=== PATIENT | male | born 1945 | race Caucasian/White ===

== ENCOUNTER 2020-10-29 07:57 | Outpatient (REF) | payer MEDICARE, SELFPAY ==
[2020-10-29 11:26] LABS: MANUAL DIFF FLAG NO
[2020-10-29 11:48] LABS: Basophils Percent Auto 0.3 % (0-2); Eosinophils Absolute Auto 0.1 X10*3/uL (0.0-0.4); Hematocrit 46.1 % (42-52); Hemoglobin 15.7 g/dl (14.0-18.0); Imm Gran Abs Auto 0.03 X10*3/uL (0.00-0.03); Imm Gran Pct Auto 0.4 % (0.0-0.4); Lymphocytes Absolute Auto 1.3 X10*3/uL (1.2-4.9); Lymphocytes Percent Auto 18.5 % (20-40); Mean Corpuscular HGB Conc 34.1 g/dl (31.0-36.0); Mean Corpuscular Hemoglobin 34.1 pg (27.0-33.0); Mean Platelet Volume 10.6 fL (9.4-12.4); Monocytes Absolute Auto 0.7 X10*3/uL (0.1-1.2); Monocytes Percent Auto 9.2 % (2-11); Neutrophils Absolute Auto 4.9 X10*3/uL (2.0-8.3); Neutrophils Percent Auto 69.6 % (45-73); Platelet Count 219 X10*3/uL (160-400); Red Blood Count 4.61 X10*6/uL (4.60-5.80); Red Cell Distribution Width 12.6 % (11.0-16.0); White Blood Count 7.1 X10*3/uL (4.8-10.8)
[2020-10-29 11:49] LABS: B Type Natriuretic Peptide 77 pg/mL (<100)
[2020-10-29 12:10] LABS: Free T4 (Free Thyroxine) 1.09 ng/dL (0.71-1.85); Thyroid Stimulating Hormone 1.34 uIU/mL (0.32-4.0)
[2020-10-29 12:11] LABS: Alanine Aminotransferase 19 U/L (0-40); Albumin Level 4.3 g/dL (3.5-5.0); Alkaline Phosphatase 69 U/L (39-117); Anion Gap 15 (12-20); Aspartate Amino Transferase 19 U/L (5-37); Blood Urea Nitrogen 22 mg/dL (9-16); Calcium 9.6 mg/dL (8.4-10.2); Carbon Dioxide 23 mmol/L (22-29); Chloride 106 mmol/L (96-108); Cholesterol 192 mg/dL; Estimated Glomerular Filt Rate > 60; Glucose Random 94 mg/dL (60-115); HDL Cholesterol 59 mg/dL; LDL Cholesterol Calculated 115 mg/dl; Potassium 4.2 mmol/L (3.3-5.1); Sodium 140 mmol/L (135-145); Total Protein 6.9 g/dL (6.5-8.0); Triglycerides 92 mg/dL
[2020-10-29 12:26] LABS: Folate 18.9 ng/mL (> or = 4.0); Vitamin B12 430 pg/mL (200-900)
== END 2020-10-29 07:58 | disposition home or self-care (01) ==
LOC: HO.HMGCLDS 07:57
PROVIDERS: PCP Internal Medicine; Visit Provider Internal Medicine
DX: E78.00 Pure hypercholesterolemia, unspecified (principal); I48.0 Paroxysmal atrial fibrillation; K21.9 Gastro-esophageal reflux disease without esophagitis
CPT/HCPCS: 36415; 80053; 80061; 82607; 82746; 83880; 84439; 84443; 85025

== ENCOUNTER 2021-04-17 07:59 | Outpatient (REF) | payer MEDICARE, SELFPAY ==
[2021-04-17 11:08] LABS: MANUAL DIFF FLAG NO
[2021-04-17 11:25] LABS: Basophils Percent Auto 0.5 % (0-2); Eosinophils Absolute Auto 0.2 X10*3/uL (0.0-0.4); Eosinophils Percent Auto 3.4 % (0-4); Hematocrit 43.5 % (42.0-52.0); Hemoglobin 14.5 g/dl (14.0-18.0); Imm Gran Abs Auto 0.02 X10*3/uL (0.00-0.03); Imm Gran Pct Auto 0.4 % (0.0-0.4); Lymphocytes Absolute Auto 1.1 X10*3/uL (1.2-4.9); Lymphocytes Percent Auto 20.2 % (20-40); Mean Corpuscular HGB Conc 33.3 g/dl (31.0-36.0); Mean Corpuscular Hemoglobin 33.3 pg (27.0-33.0); Mean Corpuscular Volume 99.8 fL (80.0-98.0); Mean Platelet Volume 10.1 fL (9.4-12.4); Monocytes Absolute Auto 0.7 X10*3/uL (0.1-1.2); Monocytes Percent Auto 12.6 % (2-11); Neutrophils Absolute Auto 3.6 x10*3/uL (2.0-8.3); Neutrophils Percent Auto 62.9 % (45-73); Platelet Count 206 X10*3/uL (160-400); Red Blood Count 4.36 X10*6/uL (4.60-5.80); Red Cell Distribution Width 13.4 % (11.0-16.0); White Blood Count 5.6 X10*3/uL (4.8-10.8)
[2021-04-17 11:41] LABS: Alanine Aminotransferase 20 U/L (0-40); Alkaline Phosphatase 64 U/L (39-117); Anion Gap 10 (12-20); Aspartate Amino Transferase 19 U/L (5-37); Bilirubin Total 0.8 mg/dL (0.0-1.0); Blood Urea Nitrogen 22 mg/dL (9-16); Carbon Dioxide 26 mmol/L (22-29); Chloride 108 mmol/L (96-108); Cholesterol 157 mg/dL; Estimated Glomerular Filt Rate > 60; Glucose Random 91 mg/dL (60-115); HDL Cholesterol 59 mg/dL; LDL Cholesterol Calculated 87 mg/dl; Potassium 4.1 mmol/L (3.3-5.1); Sodium 140 mmol/L (135-145); Total Protein 6.4 g/dL (6.5-8.0); Triglycerides 55 mg/dL
[2021-04-17 12:03] LABS: Thyroid Stimulating Hormone 1.05 uIU/mL (0.32-4.0)
[2021-04-17 12:40] LABS: Folate 19.4 ng/mL (> or = 4.0)
[2021-04-17 14:08] LABS: Vitamin B12 509 pg/mL (200-900)
== END 2021-04-17 08:00 | disposition home or self-care (01) ==
LOC: HO.HMGCLDS 07:59
PROVIDERS: PCP Internal Medicine; Visit Provider Internal Medicine
DX: E78.00 Pure hypercholesterolemia, unspecified (principal)
CPT/HCPCS: 36415; 80053; 80061; 82607; 82746; 84439; 84443; 85025

== ENCOUNTER 2021-06-13 09:51 | Outpatient (REF) | payer MEDICARE, SELFPAY ==
[2021-06-13 13:50] LABS: Appearance Urine CLEAR; Color Urine YELLOW; Glucose Urine UA NEG (NEG); Leukocyte Esterase Urine NEG (NEG); Nitrite Urine NEG (NEG); PH 5.5 (5.0-8.0); Specific Gravity - Urine <= 1.005 (1.005-1.025); Urine Blood NEG (NEG); Urine Ketones NEG (NEG); Urine Protein NEG (NEG-TRACE)
== END 2021-06-13 09:52 | disposition home or self-care (01) ==
LOC: HO.HMGCLDS 09:51
PROVIDERS: PCP Internal Medicine; Visit Provider Urology
DX: N39.0 Urinary tract infection, site not specified (principal)
CPT/HCPCS: 81003; 87086

== ENCOUNTER 2022-05-04 07:10 | Outpatient (REF) | payer MEDICARE, SELFPAY ==
[2022-05-04 09:03] LABS: MANUAL DIFF FLAG NO
[2022-05-04 09:09] LABS: Basophils Percent Auto 0.5 % (0-2); Eosinophils Absolute Auto 0.2 X10*3/uL (0.0-0.4); Eosinophils Percent Auto 4.3 % (0-4); Hematocrit 42.6 % (42.0-52.0); Hemoglobin 14.6 g/dl (14.0-18.0); Imm Gran Abs Auto 0.02 X10*3/uL (0.00-0.03); Imm Gran Pct Auto 0.4 % (0.0-0.4); Lymphocytes Absolute Auto 1.5 X10*3/uL (1.2-4.9); Lymphocytes Percent Auto 27.3 % (20-40); Mean Corpuscular HGB Conc 34.3 g/dl (31.0-36.0); Mean Corpuscular Hemoglobin 33.3 pg (27.0-33.0); Monocytes Absolute Auto 0.7 X10*3/uL (0.1-1.2); Monocytes Percent Auto 11.8 % (2-11); Neutrophils Absolute Auto 3.1 x10*3/uL (2.0-8.3); Neutrophils Percent Auto 55.7 % (45-73); Platelet Count 205 X10*3/uL (160-400); Red Blood Count 4.39 X10*6/uL (4.60-5.80); Red Cell Distribution Width 12.5 % (11.0-16.0); White Blood Count 5.6 X10*3/uL (4.8-10.8)
[2022-05-04 09:51] LABS: Alanine Aminotransferase 17 U/L (0-40); Alkaline Phosphatase 77 U/L (39-117); Anion Gap 10 (12-20); Aspartate Amino Transferase 19 U/L (5-37); Bilirubin Total 0.9 mg/dL (0.0-1.0); Blood Urea Nitrogen 19 mg/dL (9-16); Calcium 8.9 mg/dL (8.4-10.2); Carbon Dioxide 26 mmol/L (22-29); Chloride 107 mmol/L (96-108); Cholesterol 146 mg/dL; Estimated Glomerular Filt Rate > 60; Free T4 (Free Thyroxine) 1.05 ng/dL (0.71-1.85); Glucose Random 94 mg/dL (60-115); HDL Cholesterol 49 mg/dL; LDL Cholesterol Calculated 79 mg/dl; Sodium 139 mmol/L (135-145); Thyroid Stimulating Hormone 1.39 uIU/mL (0.32-4.0); Total Protein 6.3 g/dL (6.5-8.0); Triglycerides 91 mg/dL
[2022-05-04 09:57] LABS: B Type Natriuretic Peptide 38 pg/mL (<100)
[2022-05-04 10:06] LABS: Folate 17.1 ng/mL (> or = 4.0); Vitamin B12 515 pg/mL (200-900)
== END 2022-05-04 07:11 | disposition home or self-care (01) ==
LOC: HO.HMGCLDS 07:10
PROVIDERS: PCP Internal Medicine; Visit Provider Internal Medicine
DX: I48.0 Paroxysmal atrial fibrillation (principal); E78.00 Pure hypercholesterolemia, unspecified
CPT/HCPCS: 36415; 80053; 80061; 82607; 82746; 83880; 84439; 84443; 85025

== ENCOUNTER 2022-11-14 08:00 | Outpatient (REF) | payer MEDICARE, SELFPAY | END 2022-11-14 08:01 | disposition home or self-care (01) | LOC: HO.HMGCLDS 08:00 | PROVIDERS: PCP Internal Medicine; Visit Provider Internal Medicine | DX: T14.8XXA Other injury of unspecified body region, initial encounter (principal); W57.XXXA Bitten or stung by nonvenomous insect and other nonvenomous arthropods, initial encounter; Y93.9 Activity, unspecified; Y92.9 Unspecified place or not applicable; Y99.9 Unspecified external cause status | CPT/HCPCS: 36415; 86617; 86618 ==

== ENCOUNTER 2023-04-21 07:48 | Outpatient (REF) | payer MEDICARE, SELFPAY ==
[2023-04-21 11:10] LABS: MANUAL DIFF FLAG NO
[2023-04-21 11:35] LABS: Basophils Percent Auto 0.5 % (0-2); Eosinophils Absolute Auto 0.2 X10*3/uL (0.0-0.4); Eosinophils Percent Auto 3.9 % (0-4); Hematocrit 43.5 % (42.0-52.0); Hemoglobin 14.5 g/dl (14.0-18.0); Imm Gran Abs Auto 0.01 X10*3/uL (0.00-0.03); Imm Gran Pct Auto 0.2 % (0.0-0.4); Lymphocytes Absolute Auto 1.4 X10*3/uL (1.2-4.9); Lymphocytes Percent Auto 24.6 % (20-40); Mean Corpuscular HGB Conc 33.3 g/dl (31.0-36.0); Mean Corpuscular Hemoglobin 32.7 pg (27.0-33.0); Mean Corpuscular Volume 98.2 fL (80.0-98.0); Mean Platelet Volume 10.3 fL (9.4-12.4); Monocytes Absolute Auto 0.6 X10*3/uL (0.1-1.2); Monocytes Percent Auto 11.3 % (2-11); Neutrophils Absolute Auto 3.3 x10*3/uL (2.0-8.3); Neutrophils Percent Auto 59.5 % (45-73); Platelet Count 221 X10*3/uL (160-400); Red Blood Count 4.43 X10*6/uL (4.60-5.80); White Blood Count 5.6 X10*3/uL (4.8-10.8)
[2023-04-21 11:38] LABS: Prothrombin Time 11.7 SEC (11.1-13.3)
== END 2023-04-21 07:49 | disposition home or self-care (01) ==
LOC: HO.HMGCLR 07:48
PROVIDERS: PCP Internal Medicine; Visit Provider Student in an Organized Health Care Education/Training Program
DX: Z01.818 Encounter for other preprocedural examination (principal); I48.0 Paroxysmal atrial fibrillation; I49.3 Ventricular premature depolarization
CPT/HCPCS: 36415; 85025; 85610

== ENCOUNTER 2023-05-18 10:50 | Outpatient (AMB) | payer MEDICARE, SELFPAY ==
--- NOTE | 2023-05-18 10:51 | MHC.PC.OV ---
Vital Signs 05/18/23 10:52 Height 5 ft 7 in Weight 190 lb BMI 29.8 BP 118/62 Blood Pressure Location Lt brachial Position Sitting Pulse 55 Pulse Source Pulse Oximeter Pulse Oximetry (%) 96 Oxygen Delivery Method Room Air Intake Visit Reasons: Annual Exam Intake Note: Patient is here today for a physical. 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 Required: No Allergies Penicillins [PENICILLINS] Allergy (Unknown, Verified 05/18/23 10:52) HIVES/RASH Medication List - Last Reconciled 05/18/23 by Sabino Hwang MD metoprolol succinate ER 25 mg PO DAILY omeprazole 20 mg PO DAILY rivaroxaban (Xarelto) 20 mg PO DAILY rosuvastatin 10 mg PO DAILY scopolamine base (Transderm-Scop) 1 patch transdermal Q3D PRN tamsulosin (Flomax) 0.4 mg PO DAILY Tobacco use date assessed: 05/18/23 Fall risk assessment: No Falls in past year Last assessed Fall Risk: 05/18/23 Dental Screening Dental Screen Date: 05/18/23 Did you have a dental visit in the last 12 months?: Yes Did you have a dental problem in the last 6 months where you did not have access to dental care?: No Was dental information given to patient?: Patient has dentist HPI Annual Exam HPI Details 77-year-old overweight male with atrial fibrillation obstructive sleep apnea hypercholesterolemia GERD BPH and peripheral vascular disease last seen last year for physical exam. Patient's colonoscopy is up-to-date January 2020. Review of the notes February 2023 seeing Urology for BPH on Flomax had hematuria and advised cytology. Patient follows up with Dermatology as well as Orthopedics. 12/17/2022 diagnosis of right total knee replacement. just saw cardiology and echo 06/11/2022 new CArdio gallegos. had an eppisode of palpitations whilke bowling 3 weeks ago but this went back to normal- was told very seldom event and no new med. [facility] Medical History Ascending aorta dilatation Atrial fibrillation BPH (benign prostatic hyperplasia) GERD (gastroesophageal reflux disease) History of renal calculi Hypercholesterolemia Obstructive sleep apnea Osteoarthritis, knee PSVT (paroxysmal supraventricular tachycardia) Pulmonary nodules Surgical History History of appendectomy History of arthroscopy of right knee History of extraction of renal calculus Family History Father Medical history unknown Mother Breast cancer Maternal Grandfather Colon cancer Social History (Updated 05/07/22 @ 12:59 by Sabino Hwang MD) Housing: House Alcohol intake: never Patient Tobacco Use Status: Former Tobacco user Years Smoked: quit 2002 e-Cigarette/Vaping Use: Never Used service: No Current occupational status: retired Cognitive needs: No Hearing needs: No Vision needs: Yes Questionnaire PHQ-9 Over the last 2 weeks, how often have you been bothered by any of the following problems? 1. Little interest or pleasure in doing things: not at all 2. Feeling down, depressed, or hopeless: not at all 3. Trouble falling or staying asleep, or sleeping too much: not at all 4. Feeling tired or having little energy: not at all 5. Poor appetite or overeating: not at all 6. Feeling bad about yourself - or that you are a failure or have let yourself or your family down: not at all 7. Trouble concentrating on things, such as reading the newspaper or watching television: not at all 8. Moving or speaking so slowly that other people could have noticed. Or the opposite - being so fidgety or restless that you have been moving around a lot more than usual: not at all 9. Thoughts that you would be better off or of hurting yourself in some way: not at all Total score: 0 Depression Screening Interpretation: Negative Depression Screening Done: Yes Source: Developed by Drs. Luis Eduardo Danielson, Bronwyn Marcano, John Angel and colleagues, with an educational rowena from [employer]. Thrive Questionnaire Date Thrive assessed: 05/18/23 I am a: Patient What is your living situation today?: I have a steady place to live Within the past 12 months, did the food you bought not last and you didn't have the money to get more?: Never true Within the past 12 months, did you worry whether your food would run out before you got money to buy more?: Never true Do you have trouble paying for medicines?: No Do you have trouble getting transportation to medical appointments?: No Do you have trouble paying your heating and electricity bill?: No Do you have trouble taking care of your child, family member or friend?: No Do you have trouble with day-to-day activities such as bathing, preparing meals, shopping, managing finances, etc.?: No Are you currently unemployed and looking for a job?: No Are you interested in more education?: No AUDIT C Alcohol Use Questionnaire (AUDIT-C) 1. How often do you have a drink containing alcohol?: Never 2. How many drinks containing alcohol do you have on a typical day when you are drinking?: 1 or 2 (0) 3. How often do you have six or more drinks on one occasion?: Never Total Score: 0 MAYNOR-7 AMB Questionnaire MAYNOR-7 Date MAYNOR - 7 assessed: 05/18/23 Feeling nervous, anxious, or on edge: 0 = Not at all Not being able to stop or control worryin = Not at all Worrying too much about different things: 0 = Not at all Trouble relaxin = Not at all Being so restless that it is hard to sit still: 0 = Not at all Becoming easily annoyed or irritable: 0 = Not at all Feeling afraid as if something awful might happen: 0 = Not at all Total MAYNOR-7 score (0-4 normal; 5-9 mild; 10-14 moderate; 15-21 severe): 0 Source: Developed by Drs. Luis Eduardo Danielson, Bronwyn Marcano, John Angel and colleagues, with an educational rowena from [employer]. Review of Systems Const Denies poor appetite and Denies weakness Eyes Denies no additional complaints ENT Reports Normal hearing present, Denies dizziness, Denies nasal congestion, Denies tinnitus and Denies sore throat Card Denies chest pain, Denies syncope, Denies rapid heart rate and Denies dyspnea Resp Denies cough and Denies dyspnea GI Denies change in stool character, Reports constipation, Denies diarrhea, Denies nausea and Denies vomiting Denies dysuria and Denies urinary frequency Neuro Reports Normal hearing present, Denies confusion, Denies dizziness, Denies syncope and Denies weakness Psych Denies confusion Physical exam (Primary Care) Vital Signs: Last Vital Signs Pulse 55 05/18/23 10:52 BP 118/62 05/18/23 10:52 Pulse Ox 96 05/18/23 10:52 Oxygen Delivery Method Room Air 05/18/23 10:52 BMI result Body Mass Index 29.8 Tobacco/Smoking Status: Tobacco use Status Tobacco use date assessed 05/18/23 05/18/23 10:53 Patient Tobacco Use Status Former Tobacco user 05/18/23 10:53 e-Cigarette/Vaping Use Never Used 05/18/23 10:53 PHQ-9: PHQ-9 Score PHQ-9: Total score 0 05/18/23 11:27 Depression Screening Interpretation: Negative Thrive Assessment: Date of Thrive Assessment Date Thrive assessed 05/18/23 05/18/23 10:53 Const General: No confusion Orientation/consciousness: No confusion HENMT Head: Yes normocephalic Ears: external ears normal and TM's normal bilaterally Face and sinus: Yes normal facial exam Mouth: moist mucous membranes Throat: Yes tonsils normal Eyes Conjunctivae: conjunctivae normal Pupils: Equal, round and reactive pupils present and Pupil accommodation reflex normal Direct Ophthalmoscopy: normal light reflex Neck Neck: No lymphadenopathy Thyroid: Thyroid normal Chest Chest palpation & inspection: normal inspection of the chest Resp Effort & Inspection: normal respiratory effort and no audible wheezes Auscultation: clear to auscultation bilaterally, no crackles, no wheezes and lung sounds not diminished Cardio Rate: regular rate Rhythm: regular rhythm Peripheral pulses: radial pulses present and dorsalis pedis present GI Other: guaiac negative prostate N Palpation (GI): no masses Auscultation: normal bowel sounds and normoactive bowel sounds Male General Exam: Yes normal external exam Skin General skin exam: no rashes or lesions noted Rashes: no rashes Neuro General: No confusion Cranial nerves: Yes Equal, round and reactive pupils present and Yes Normal hearing present Cognition (Neuro): normal cognition Gait exam (Neuro): Normal gait present Motor exam (neuro): 5/5 motor strength present throughout Deep tendon reflexes (DTR's): Right brachioradialis reflex intensity grade: 2+, Left brachioradialis reflex intensity grade: 2+, Right patellar reflex intensity grade: 2+ and Left patellar reflex intensity grade: 2+ Extrem General: No edema Office Procedures Flu Questionnaire Does the patient have a severe egg allergy?: No Does the patient have severe life threatening allergies?: No Does the patient have a fever or illness today?: No Has the patient ever had Guillain-Luther Syndrome?: No Has the patient ever had any past reaction to a flu shot?: No Immunizations flu vacc [id number] 6mos up(PF) 60 mcg(15 mcgx4)/0.5 mL IM syringe Performing Provider: Sabino Hwang MD Performing Location: [facility] Administered by: SAI Lee on 05/18/23 11:52 Dose Route Admin Location Dispensed Lot Number Expiration Date 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 [employer]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 0.5 mL IM Left Deltoid 0.5 mL [id number] 11/14/23 83046-156-25 [facility] VIS Given Date VIS Provided VIS Publication Date 05/18/23 Single Vaccine 20 Eligibility Eligibility Date Funding Source Not [facility] Eligible 05/18/23 Private Assessment and Plan Assessment & Plan (1) Annual physical exam: Code(s): Z00.00 - Encounter for general adult medical examination without abnormal findings (2) BPH (benign prostatic hyperplasia): Code(s): N40.0 - Benign prostatic hyperplasia without lower urinary tract symptoms Qualifiers: Lower urinary tract symptom presence: symptoms present Lower urinary tract symptom detail: urinary frequency Qualified Code(s): N40.1 - Benign prostatic hyperplasia with lower urinary tract symptoms; R35.0 - Frequency of micturition Plan: Continue to follow-up with Urology patient on tamsulosin (3) Atrial fibrillation: Comment: Dr. Steve Code(s): I48.91 - Unspecified atrial fibrillation Qualifiers: Atrial fibrillation type: paroxysmal Qualified Code(s): I48.0 - Paroxysmal atrial fibrillation Plan: Continue with anticoagulation twice a year blood work renal. Continue with metoprolol (4) Hypercholesterolemia: Code(s): E78.00 - Pure hypercholesterolemia, unspecified Plan: Avoid fried foods, chicken skin, eggs, butter margarine, pastries and meat. Be it pork or beef they have a lot of cholesterol LDL goal of less than 130 and triglyceride of less than 150 patient on rosuvastatin 10 mg once a day (5) GERD (gastroesophageal reflux disease): Code(s): K21.9 - Gastro-esophageal reflux disease without esophagitis Qualifiers: Esophagitis presence: without esophagitis Qualified Code(s): K21.9 - Gastro-esophageal reflux disease without esophagitis Plan: Avoid the foods that causes that usually spicy foods, tomato products, juices, coffee, soda and foods that your sensitive to. After eating do not lie down, allow 3-4 hours before in lie down. And keep the head of bed above 30 degrees to avoid the acid from going up. On omeprazole Orders: Orders Comprehensive Met. Panel 6 Months I48.0 - Paroxysmal atrial fibrillation Complete Blood Count Auto Diff 6 Months I48.0 - Paroxysmal atrial fibrillation Influenza [id number] Immunization Today Z23 - Encounter for immunization Medications: New flu vacc [id number] 6mos up(PF) 0.5 mL IM ONCE 0.5 mL 0RF Z23 - Encounter for immunization Coding Level of Care Code Est Pt Prev Care >65y(50243) Diagnoses Annual physical exam Z00.00 Benign prostatic hyperplasia with urinary frequency N40.1; R35.0 Lower urinary tract symptom presence: symptoms present Lower urinary tract symptom detail: urinary frequency Paroxysmal atrial fibrillation I48.0 Atrial fibrillation type: paroxysmal Hypercholesterolemia E78.00 Gastroesophageal reflux disease without esophagitis K21.9 Esophagitis presence: without esophagitis
[2023-05-18 10:52] VITALS: BP 118/62; PULSE 55; O2SAT 96; BMI 29.8
== END 2023-05-18 11:47 | disposition home or self-care (01) ==
PROVIDERS: Visit Provider Internal Medicine
DX: Z00.00 Encounter for general adult medical examination without abnormal findings (principal); I48.0 Paroxysmal atrial fibrillation; N40.1 Benign prostatic hyperplasia with lower urinary tract symptoms; Z23 Encounter for immunization; R35.0 Frequency of micturition; E78.00 Pure hypercholesterolemia, unspecified; K21.9 Gastro-esophageal reflux disease without esophagitis
CPT/HCPCS: 90471; 90686; 99397

== ENCOUNTER 2024-05-15 07:15 | Outpatient (REF) | payer MEDICARE, SELFPAY ==
--- OUTSIDE RECORDS SUMMARY | 2024-05-15 07:17 | XMS_ITS | Data Portability ---
Author Organization [facility], [facility] Address [address] [place] [address] Care Team Providers Care Cleaner Wall Name Role Phone CHANGYULY Primary Care Provider [phone] Assessment Encounter Date Assessment Date Assessment LastModified by Organization Details LastModified Time 12/21/2023 12/21/2023 Patient seen und er general supervision of Dr. Morales who was available but who did not see the patient. HPI: 78-year-old seen today regarding left hip arthritis. Patient here for intra-articular injection. Has been contemplating possibility of total hip arthroplasty. Denies recent falls or trauma. Examination: 78-year-old no distress afebrile. On examination left hip no erythema or warmth, limited motion. Irritability with range of motion noted. Calf is soft, left lower extremity neurovascularly intact. X-ray: 2 views of the left hip are ordered and obtained and interpreted at [facility] today revealing moderate arthritic change. No evidence of acute fracture or dislocation. Mild advancement since previous x-rays. Impression: Left hip arthritis Plan: Treatment options are reviewed. Patient offered intra-articular injection which they accepted. Following sterile preparation 40 mg Kenalog and 2 cc lidocaine injected intra-articularly under direct ultrasound-guided visualization. Patient tolerated procedure well. Postinjection precautions reviewed. 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 An attempt at proofreading has been made to minimize errors. Please call for corrections. [email or web address] Not available 12/21/2023 13:56:29 05/04/2024 05/04/2024 HISTORY AND PHYSICAL Patient date of :1945 Admitting diagnosis:left rotator cuff tear Planned procedure:left orthoscopic rotator cuff repair Surgeon: Roberto Cerna M.D. HPI:78-year-old gentleman, refrractory left shoulder pain taken to the operating room for rotator cuff repair. Past medical history:atrial fibrillation, reflux Review of systems: Negative Medications:omepra zole, metoprolol, Xaralto Allergies: penicillin Past surgical history:bilateral knee, appendectomy Social history: Alcohol use: Social Smoker: Negative PHYSICAL EXAMINATION: The patient is well appearing and in no apparent distress. Alert and oriented x3. Height 5 feet 4 inchesWeight 180 pounds Gait: symmetri HEENT: Benign Chest: Clear to auscultation bilaterally Heart: Regular rate and rhythm, no murmurs or gallops Abdomen: Soft and nontender, no masses Neurovascular: Within normal limits Skin: Within normal limits Pertinent extremity exam:left shoulder full motion with rotator cuff irritability DIAGNOSIS:left rotator cuff tear PLAN:the patient is taken to the operating room for left shoulder arthoscopic rotator cuff repair. Detailed discussion regarding the patient? s pathoanatomy and treatment options conducted. The risks and benefits, potential complications including but not limited to failure to alleviate all pain, need for further surgery, infection, need for hardware implantation, stiffness, bleeding, neurovascular injury discussed in detail. I advised the patient that symptom resolution after this procedure is often protracted, and may be incomplete. I explained that, as an end result, permanent functional limitations may be recommended. All questions have been answered to their satisfaction, and I believe the patient has made an informed decision to proceed with surgery. [email or web address] Not available 05/04/2024 12:04:32 Plan of Treatment Reminders Order Date Submit Date Provider Last Modified By Organization Details Last Modified Time Details Appointments SURGERY @ [facility] 2023 07:30A M Roberto Cerna MD Not available Not available Not available POST OP 15 2024 01:00P M Miguel Nina PA-C Not available Not available Not available PT INITIAL EVAL 2024 02:30P M Kenyon Calderon, PT Not available Not available Not available PT FOLLOW-U P 2024 02:00P M Kenyon Calderon, PT Not available Not available Not available PT FOLLOW-U P 2024 02:00P M Kenyon Calderon PT Not available Not available Not available PT FOLLOW-U P 2024 01:30P M Zoltan Scafuri, [employer] Not available Not available Not available PT FOLLOW-U P 2024 01:30P M Zoltan Scafuri, [employer] Not available Not available Not available PT FOLLOW-U P 2024 02:00P M Kenyon Florek, PT Not available Not available Not available PT FOLLOW-U P 2024 02:00P M Kenyon Florek, PT Not available Not available Not available PT FOLLOW-U P 2024 01:30P M Zoltan Scafuri, [employer] Not available Not available Not available PT FOLLOW-U P 2024 01:30P M Zoltan Scafuri, [employer] Not available Not available Not available PT FOLLOW-U P 2024 02:00P M Kenyon Florek, PT Not available Not available Not available PT FOLLOW-U P 2024 01:30P M Zoltan Scafuri, [employer] Not available Not available Not available PT FOLLOW-U P 2024 01:30P M Zoltan Scafuri, [employer] Not available Not available Not available PT FOLLOW-U P 2024 01:30P M Kenyon Florek, PT Not available Not available Not available PT FOLLOW-U P 2024 01:30P M Kenyon Florek, PT Not available Not available Not available PT FOLLOW-U P 2024 01:30P M Zoltan Scafuri, [employer] Not available Not available Not available PT FOLLOW-U P 2024 01:30P M Zoltan Scafuri, [employer] Not available Not available Not available PT FOLLOW-U P 2024 01:30P M Kenyon Florek, PT Not available Not available Not available PT FOLLOW-U P 2024 01:30P M Kenyon Florek, PT Not available Not available Not available PT FOLLOW-U P 2024 01:30P M Zoltan Scafuri, [employer] Not available Not available Not available PT FOLLOW-U P 2024 01:30P M Zoltan Scafuri, [employer] Not available Not available Not available PT FOLLOW-U P 2024 01:30P M Kenyon Florek, PT Not available Not available Not available PT FOLLOW-U P 2024 01:30P M Kenyon Calderon, PT Not available Not available Not available Lab None recorded . Referral None recorded . Procedures None recorded . Surgeries None recorded . Imaging XR, hip + pelvis, unilater al, 2 or 3 view - room 119 2V L [facility] [address], [place], [address], 01/11/2024 09:16:05 XR, shoulder , 2 or more view - 3 2023 024 [facility] [address], [address], [place], [address], 02/24/2024 13:50:16 MRI, shoulder , w/o contrast 2023 024 [facility] ([facility] [address], [place], [address], 03/13/2024 21:52:52 Medication Orders None recorded . Patient TargetsNo targets recorded. Patient InstructionsNo instructions recorded. Reason for Referral None Reported. Results Created Date Observation Date Name Description Value Unit Range Abnormal Flag Note LastModifiedBy Organization Detail LastModifiedTime 12/21/1912/21/2023 XR, hip + pelvi s, unila teral , 2 or 3 view [email or web address] ?Encry pted=s hAaTro YD8dLq bEUv6g %2BXZw aYqtaq 0bqfl% 2Fg9IQ a4ajBk vP9nXo QUaueC m3YtLR FvZlgJ JJ8mAn HZtai3 6a7890 AC0Kob 3qFVar eUC8mr 84%3D INTERFACE [facility] [address], [place], [address], 12/21/2023 13:37:57 12/21/19 24 12/21/2023 XR, hip + pelvi s, unila teral , 2 or 3 view [email or web address] ?Encry pted=s hAaTro YD8dLq bEUv6g %2BXZw aYqtaq 0bqfl% 2Fg9IQ a4ajBk vP9nXo QUaueC m3YtLR FvZlgJ JJ8mAn HZtai3 3z8257 AC0Kob 3qFVar eUC8mr 84%3D INTERFACE [facility] [address], [place], [address], 12/21/2023 13:37:59 02/24/2002/24/2024 XRsary, 2 or more view [email or web address] ?Encry pted=s hAaTro YD8dLq bEUv6g %2BXZw aYqtaq 0bqfl% 2Fg9IQ a4ajBk vP9nXo QUaueC m3YtLR FvZl JJ8[place] HZtai3 2q1371 AC0Kqa 3iBUaK iKiQtr MwF INTERFACE [facility] [address], [place], [address], 02/24/2024 13:50:16 02/24/20 24 02/24/2024 sary GRANGER, 2 or more view [email or web address] ?Encry pted=s hAaTro YD8dLq bEUv6g %2BXZw aYqtaq 0bqfl% 2Fg9IQ a4ajBk vP9nXo QUaueC m3YtLR FvZlgJ JJ8mAn HZtai3 5x3289 AC0Kqa 3iBUaK iKiQtr MwF INTERFACE [facility] [address], [place], [address], 02/24/2024 13:50:18 03/13/20 24 03/11/2024 MRI, sary barber, w/o contr ast [facility] Access ion Number : [id number] Patien t Name: Lizeth Santos Record Number : [id number] Date of : 1945 Date of Exam: 2023 Referr sloan Physic karissa: [facility] [address], [address] [place] [address] Exam: MR Should er (C-) CPT 83294 - Left Room Descri ption: [place] [facility] 3.0T Clinic al Histor y: Pain in the left should er, questi on rotato r cuff tear. The patien t report s mild to modera te anteri or interm ittent left should er pain for one month with limite d range of motion . Techni que: MRI of the left should er was perfor med withou t intrav enous contra st. Compar kimberley: None. Findin gs: Rotato r cuff: There is a full-t hickne ss tear of the supras pinatu s, which is retrac tiffanie medial ly by 3.2 cm. The infras pinatu s, teres minor and subsca pulari s tendon s are intact . There is modera te decrea sed muscle bulk of supras pinatu s. Glenoi d labrum and biceps tendon : Degene rative appear ing tear of the inferi or labrum is seen. There is thicke ralph of the axilla ry pouch with increa sed T2 signal . The biceps tendon is in the groove . AC joint: There is mild acromi oclavi cular degene rative change with bony prolif eratio n. Articu lar cartil age and bone: Mild irregu lar chondr al thinni ng is seen inferi dwain in the glenoh umeral joint with chondr al thinni ng or pronou nced superi dwain on the olegario l head. Impres arcelia: 1. Full-t hickne ss retrac tiffanie tear of supras pinatu s. 2. Thicke ralph and increa sed T2 signal of the axilla ry pouch, which can be seen with adhesi ve capsul itis. 3. Mild glenoh umeral and acromi oclavi cular degene rative change . Electr onical ly Signed By: Tawanna conner[address] [facility] ([facility]) [address], [place], [address], 03/14/2024 07:28:45 Result Notes None recorded. Problems Name Problem SNOMED Code Status Onset Date Resolution Date Notes Provider Name and Address Organization Details Recorded Time Idiopathic osteoarthri tis 137407849 Active 2014 Problem Code: M17.11; Problem Code Type: ICD-10; Status: 'A'; Not Available [facility] 10:57:33 Problem Notes None recorded. Procedures Surgical History Date Name Laterality Status Provider Name and Address Organization Details Recorded Time 12/21/2023 Prabha completed Kenyon Villavicencio PA-C [address] [facility], [place], [address], [facility] 12/21/2023 13:55:20 Imaging Results Imaging Date Name Status LastModified by Organiz ation Details LastModified Time 12/21/2023 XR, hip + pelvis, unilateral, 2 or 3 view completed INTER[facility] [address], [place], [address], 12/21/2023 13:37:57 12/21/2023 XR, hip + pelvis, unilateral, 2 or 3 view completed INTER[facility] [address], [place], [address], 12/21/2023 13:37:59 02/24/2024 XR, shoulder, 2 or more view completed INTER[facility] [address], [place], [address], 02/24/2024 13:50:16 02/24/2024 XR, shoulder, 2 or more view completed INTER[facility] [address], [place], [address], 02/24/2024 13:50:18 03/11/2024 MRI, shoulder, w/o contrast completed [address] [facility] ([facility]) [address] [place], [address], 03/14/2024 07:28:45 Procedure Notes None recorded. Medical Equipment None Reported. Allergies Allergen ID Allergen Name Allergen Category Reaction Reaction Severity Criticality Documentation Date Start Date Code Code System Note Provider Name and Address Organization Details Recorded Time 70122 Medicinal product containin g penicilli n and acting as antibacte rial agent (product) medicatio n Not available Not available Not available 07/19/20232011 17083 05 SNOMED Not Available [facility] 11:53:32 Medications Name Sig Start Date Stop Date Status Note LastModified by Organization Details LastModified Time amiodarone 200 mg tablet TAKE 1 TABLET BY MOUTH TWICE A DAY FOR 30 DAYS active Not Available Not Available No t Available metoprolol succinate ER 50 mg tablet,exte nded release 24 hr TAKE 1 TABLET BY MOUTH EVERY DAY active Not Available Not Available No t Available tamsulosin 0.4 mg capsule TAKE 1 CAPSULE BY MOUTH EVERY DAY IN THE EVENING active Not Available Not Available No t Available pseudoephed rine-guaife nesin ER 80-700 mg tablet,exte nded release Percocet 5-325MG Tablet 1 every 4 - 6 hours as needed 12/09 completed Statu s: 'Disc ontin ued'; Not Available Not Available Not Available omeprazole 20 mg capsule,del ayed release TAKE 1 CAPSULE BY MOUTH EVERY DAY active Not Available Not Available No t Available scopolamine 1 mg over 3 days transdermal patch APPLY 1 PATCH TRANSDERM ALLY EVERY 3 DAYS NEEDED FOR NAUSEA AND VOMITING active Not Available Not Available No t Available rosuvastati n 10 mg tablet TAKE 1 TABLET BY MOUTH EVERY DAY active Not Available Not Available No t Available oxycodone HCl-oxycodo ne-ASA 1 TAB Q [address] NOT [address]IVE WHILE ON THIS MEDICATIO N 12/09 completed Statu s: 'Disc ontin ued'; Not Available Not Available Not Available Vitals Date Recorded Body height Body mass index (BMI) Body weight Provider Name and Address Organization Details Last Updated DateTime 12/21/2023 170.18 cm 28.2 kg/m2 76942.63 g MORIAH LOCO [place] - [facility] 12/21/2023 13:32:00 Date Recorded Body height Body mass index (BMI) Body weight Provider Name and Address Organization Details Last Updated DateTime 02/24/2024 170.18 cm 28.2 kg/m2 70947.63 g LUIS ANTONIO [facility] 02/24/2024 13:33:14 Date Recorded Body height Body mass index (BMI) Body weight Provider Name and Address Organization Details Last Updated DateTime 03/24/2024 170.18 cm 28.2 kg/m2 72884.63 g LUIS ANTONIO [facility] 03/24/2024 08:07:13 Date Recorded Body height Body mass index (BMI) Body weight Provider Name and Address Organization Details Last Updated DateTime 05/04/2024 170.18 cm 28.2 kg/m2 32348.63 g ROSIO PHELPS [facility] 05/04/2024 11:11:13 Social History None recorded. Functional Status None recorded. Mental Status None recorded. Family History Nothing Reported. Medical History No medical history recorded. Past Encounters Encounter ID Performer Location Encounter Start Date Encounter Closed Date Diagnosis/Indication Diagnosis SNOMED-CT Code Diagnosis ICD10 Code [id number] NATHAN Trujillo [address] [place] [address] 12/21/2023 13:24:40 01/11/2024 09:16:05 Pain of left hip joint 2689742251 44748 M25.552 Osteoarthritis of hip 23 4803879 M16.9 [id number] NATHAN Panchal [address] [place] [address] 02/24/2024 13:20:46 03/15/2024 11:20:00 Pain of left shoulder joint 7003144510 7816922 M25.512 Strain of rotator cuff of shoulder 416834465 S46.012A [id number] NATHAN Panchal [address] [place] [address] 03/24/2024 08:03:10 04/24/2024 11:46:25 Traumatic left rotator cuff tear 9358297814 5286286 S46.012D [id number] Roberto Cerna MD [facility] [address] [place] [address] 05/04/2024 10:00:57 05/04/2024 12:04:49 Nontraumatic complete rupture of rotator cuff of left shoulder 6995178173 714676 M75.122 Health Concerns Section Related Observation LastModified by Organization Detai ls LastModified Time None Recorded Concern Status LastModified by Organization Details LastModified Time None Recorded Advance Directives Directive None Recorded Payers Encounter Date Sequence Insurance Name Policy Number Policy Castorena Covered Member ID Castorena Member ID Guarantor Name 12/21/2023 1 [employer] (MEDICARE REPLACEMENT PPO) [id number] Lizeth Santos [id number] Lizeth Santos 02/24/2024 1 [employer] (MEDICARE REPLACEMENT PPO) [id number] Lizeth Santos [id number] Lizeth Santos 03/24/2024 1 [employer] (MEDICARE REPLACEMENT PPO) [id number] Lizeth Santos [id number] Lizeth Santos 05/04/2024 1 [employer] (MEDICARE REPLACEMENT PPO) [id number] Lizeth Santos [id number] Lizeth Santos Notes Date Note Type Note Provider Name and Address Organization Details Recorded Time 02/24/2024 text/html I am seeing this patient under the supervision of Dr. Chaidez who was available but did not see the patient.HPI: This patient is a 78-year-old male who presents to our office for orthopedic evaluation of a new problem. He is right-hand dominant. Developed new onset left shoulder pain about a month ago. He recalls being on a cruise and doing some weightlifting exercises when he heard a pop in the shoulder. After the cruise for 5 days later he was playing pickle ball and felt another additional pop in the shoulder. Since that time he has had weakness and pain. He rates his pain as 7/10. He feels frequent clicking and popping in the shoulder. Denies prior shoulder surgeryPFMSH and ROS has been reviewed, updated, and signed by me and is located in the patient? s chart.PHYSICAL EXAMINATION: The patient is well appearing and in no apparent distress. Alert and oriented x 3. Gait is symmetric.Left shoulder exam: Elevates to 170 degrees, externally rotates 60, internal rotates to L1. Moderate bursal irritability, with positive impingment test, No AC joint irritability. Decreased 4/5 strength when firing the cuff to external rotation and initiating elevation. Significant pain reproduced with strength testing. Significant subacromial crepitus is noted with positive provocative impingement. Mild pain with resistive horizontal elevation today. No significant anterior instabitly noted with negative apprehension sign. Cervical ROM normal without radicular symptomsRight uninvolved shoulder ROM full, 5/5 strength including rotator cuff and periscapular musculature. Good muscle bulk and strength without atrophy. No evidence of instability of the shoulder. Negative impingement signs. Negative AC joint tenderness.No erythema, no redness, no warmth. Peripheral, vascular, lymphatic examination, skin, neurological, coordination, reflexes, sensation are within normal limits.X-RAY REPORT: X-rays were ordered, obtained and reviewed today at [facility]. Four views of the left shoulder demonstrate type II acromion, AC joint with mild arthritis findings, glenohumeral joint is well preserved.IMPRESSION : Acute rotator cuff tear left shoulderPLAN: Given the patient's mechanism of injury and now having pain and weakness I would recommend imaging studies such as MRI at this time. This is medically indicated as is potential need for surgery. MRI will confirm suspected rotator cuff tear. Recheck after MRI for follow-up Miguel Nina PA-C [address] [facility] [address], [place], [address], [facility] 02/25/2024 16:04:31 03/24/2024 text/html I am seeing the patient todadiscussion shoulder surgery y under the supervision of Dr. Cerna who was available but who did not see the patient. HPI: Mr. Enriquez is a 78-year-old active and healthy male who was recently seen by myself following a left shoulder injury. He had suspected acute rotator cuff tear. Recently underwent MRI imaging which confirms rotator cuff tear with retraction. Past family, medical, social history and review of systems has been reviewed, updated and signed by me and is located in the patient's chart. Examination: The patient is well appearing and in no apparent distress. Alert and oriented x3. Gait is symmetric. Left shoulder exam consistent with previous exam showing weakness with external rotation and elevation. Pain with provocative impingement maneuvers with some crepitus. Elbow, wrist and hand move well. Roller Pneumatic strength intact. No instability. MRI imaging of the left shoulder recently obtained and independently reviewed today at [facility]. MRI is notable for a full-thickness retracted tear involving supraspinatus entirety. This is retracted 3 cm to the mid humeral head. Infraspinatus and subscapularis tendons intact. Mild AC joint and glenohumeral degenerative change. Some thickening of the capsule consistent with possible adhesive capsulitis. Impression: Full-thickness retracted rotator cuff tear left shoulder Plan: Patient is a healthy 78-year-old male with an acute onset of rotator cuff tear. This appears to be repairable and recommendation at this time is for surgical management with left shoulder arthroscopy and arthroscopic rotator cuff repair combined with SA D DCE. Rationale for this discussed as well as outcome expectations. He consents to surgery and wishes to move forward. Recheck preoperatively for medical clearance Detailed discussion regarding the patient? s pathoanatomy and treatment options conducted. The risks and benefits, potential complications including but not limited to failure to alleviate all pain, need for further surgery, infection, need for hardware implantation, stiffness, bleeding, neurovascular injury discussed in detail. I advised the patient that symptom resolution after this procedure is often protracted, and may be incomplete. I explained that, as an end result, permanent functional limitations may be recommended. All questions have been answered to their satisfaction, and I believe the patient has made an informed decision to proceed with surgery. Miguel Nina PA-C [address] [facility] [address], [place], [address], [facility] 03/24/2024 08:32:39
--- OUTSIDE RECORDS SUMMARY | 2024-05-15 07:17 | XMS_ITS | Continuity of Care Document ---
Author Organization [facility] Address [address] [place] [address] Care Team Providers Care Lead Php Developer Name Role Phone YULY DOWNING Primary Care Provider Assessment No assessment recorded. Plan of Treatment Reminders Order Date Submit Date Provider Last Modified By Organization Details Last Modified Time Details Appointments SURGERY @ [facility] 2023 07:30A M Roberto Cerna MD Not available Not available Not available POST OP 15 2024 01:00P M Miguel Nina PA-C Not available Not available Not available PT INITIAL EVAL 2024 02:30P M Kenyon Tapiaek, PT Not available Not available Not available PT FOLLOW-UP 2024 02:00P M Kenyon Florek, PT Not available Not available Not available PT FOLLOW-UP 2024 02:00P M Kenyon Florek, PT Not available Not available Not available PT FOLLOW-UP 2024 01:30P M Zoltan Scafuri, FACILITIES MANAGER Not available Not available Not available PT FOLLOW-UP 2024 01:30P M Zoltan Scafuri, FACILITIES MANAGER Not available Not available Not available PT FOLLOW-UP 2024 02:00P M Kenyonuma Tapiaek, PT Not available Not available Not available PT FOLLOW-UP 2024 02:00P M Kenyon Florek, PT Not available Not available Not available PT FOLLOW-UP 2024 01:30P M Zoltan Scafuri, FACILITIES MANAGER Not available Not available Not available PT FOLLOW-UP 2024 01:30P M Zoltan Scafuri, FACILITIES MANAGER Not available Not available Not available PT FOLLOW-UP 2024 02:00P M Kenyon Florek, PT Not available Not available Not available PT FOLLOW-UP 2024 01:30P M Zoltan Scafuri, FACILITIES MANAGER Not available Not available Not available PT FOLLOW-UP 2024 01:30P M Zoltan Scafuri, FACILITIES MANAGER Not available Not available Not available PT FOLLOW-UP 2024 01:30P M Kenyon Florek, PT Not available Not available Not available PT FOLLOW-UP 2024 01:30P M Kenyon Florek, PT Not available Not available Not available PT FOLLOW-UP 2024 01:30P M Zoltan Scafuri, FACILITIES MANAGER Not available Not available Not available PT FOLLOW-UP 2024 01:30P M Zoltan Scafuri, FACILITIES MANAGER Not available Not available Not available PT FOLLOW-UP 2024 01:30P M Kenyon Florek, PT Not available Not available Not available PT FOLLOW-UP 2024 01:30P M Kenyon Florek, PT Not available Not available Not available PT FOLLOW-UP 2024 01:30P M Zoltan Scafuri, FACILITIES MANAGER Not available Not available Not available PT FOLLOW-UP 2024 01:30P M Zoltan Scafuri, FACILITIES MANAGER Not available Not available Not available PT FOLLOW-UP 2024 01:30P M Kenyon Florek, PT Not available Not available Not available PT FOLLOW-UP 2024 01:30P M Kenyon Florek, PT Not available Not available Not available Lab None recorded. Referral None recorded. Procedures None recorded. Surgeries None recorded. Imaging XR, shoulder, 2 or more view - 3 2023 024 [facility], [address], [address], [place], [address], 02/24/2024 13:50:16 MRI, shoulder, w/o contrast [address] [facility] ([facility]), [address], [place], [address], 03/13/2024 21:52:52 Medication Orders None recorded. Patient TargetsNo targets recorded. Patient InstructionsNo instructions recorded. Reason for Referral None Reported. Results Created Date Observation Date Name Description Value Unit Range Abnormal Flag Note LastModifiedBy Organization Detail LastModifiedTime 02/24/20 24 02/24/2024 XR, sary sunil, 2 or more view [email or web address] ?Encry pted=s hAaTro YD8dLq bEUv6g %2BXZw aYqtaq 0bqfl% 2Fg9IQ a4ajBk vP9nXo QUaueC m3YtLR FvZlgJ JJ8mAn HZtai3 3m3400 AC0Kqa 3iBUaK iKiQtr MwF INTERFACE [facility] [address], [place], [address], 02/24/2024 13:50:16 02/24/20 24 02/24/2024 XR, sary barber, 2 or more view [email or web address] ?Encry pted=s hAaTro YD8dLq bEUv6g %2BXZw aYqtaq 0bqfl% 2Fg9IQ a4ajBk vP9nXo QUaueC m3YtLR FvZlgJ JJ8mAn HZtai3 1q3886 AC0Kqa 3iBUaK iKiQtr MwF INTERFACE [facility] [address], [place], [address], 02/24/2024 13:50:18 03/13/20 24 03/11/2024 MRI, sary barber, w/o contr ast [facility] Access ion Number : [id number] Name: Lizeth Santos Record Number : [id number] Date of : 1945 Date of Exam: 2023 Referr ing Physic karissa: [facility] ([facility]) [address], [address] [place] [address] Exam: MR Should er (C-) CPT 34477 - Left Room Descri ption: [facility] 3.0T Clinic al Histor y: Pain [...] . Electr onical ly Signed By: Tawanna Underwood ra, MD [email or web address] [facility] ([facility]) [address], [place], [address], 03/14/2024 07:28:45 Result Notes None recorded. Problems Name Problem SNOMED Code Status Onset Date Resolution Date Notes Provider Name and Address Organization Details Recorded Time Idiopathic osteoarthri tis 137694066 Active 2014 Problem Code: M17.11; Problem Code Type: ICD-10; Status: 'A'; Not Available [facility] 10:57:33 Problem Notes None recorded. Procedures Surgical History Date Name Laterality Status Provider Name and Address Organization Details Recorded Time 12/21/2023 Prabha completed Kenyon Villavicencio PA-C [address], [place], [address], [facility] 12/21/2023 13:55:20 Imaging Results None recorded. Procedure Notes None recorded. Medical Equipment None Reported. Allergies Allergen ID Allergen Name Allergen Category Reaction Reaction Severity Criticality Documentation Date Start Date Code Code System Note Provider Name and Address Organization Details Recorded Time 87686 Medicinal product containin g penicilli n and acting as antibacte rial agent (product) medicatio n Not available Not available Not available 07/19/20232011 92479 05 SNOMED Not Available [facility] 11:53:32 Medications Name Sig Start Date Stop [...] Updated DateTime 02/24/2024 170.18 cm 28.2 kg/m2 45197.63 g LUIS ANTONIO BOBNIKIA [facility] 02/24/2024 13:33:14 Social History None recorded. Functional Status None recorded. Mental Status None recorded. Family History Nothing Reported. Medical History No medical history recorded. Past Encounters Encounter ID Performer Location Encounter Start Date Encounter Closed Date Diagnosis/Indication Diagnosis SNOMED-CT Code Diagnosis ICD10 Code [id number] [facility] [address] [place] [address] 02/24/2024 13:20:46 03/15/2024 11:20:00 Pain of left shoulder joint 6553160772 3800430 M25.512 Strain of rotator cuff of shoulder 379621444 S46.012A Health Concerns Section Related Observation LastModified by Organization Detai ls LastModified Time None Recorded Concern Status LastModified by Organization Details LastModified Time None Recorded Payers Encounter Date Sequence Insurance Name Policy Number Policy Castorena Covered Member ID Castorena Member ID Guarantor Name 02/24/2024 1 [employer] (MEDICARE REPLACEMENT PPO) [id number] Lizeth Santos [id number] Lizeth Santos Notes Date Note Type Note [...] were ordered, obtained and reviewed today at [facility]. Four views of the left shoulder demonstrate type II acromion, AC joint with mild arthritis findings, glenohumeral joint is well preserved.IMPRESSIO N: Acute rotator cuff tear left shoulderPLAN: Given the patient's mechanism of injury and now having pain and weakness I would recommend imaging studies such as MRI at this time. This is medically indicated as is potential need for surgery. MRI will confirm suspected rotator cuff tear. Recheck after MRI for follow-up Miguel Nina PA-C [address], [place], [address], [facility] 02/25/2024 16:04:31
--- OUTSIDE RECORDS SUMMARY | 2024-05-15 07:17 | XMS_ITS | Continuity of Care Document ---
Author Organization [facility] 2nd floor Address [address] [place] [address] Care Team Providers Care Hvac Refrigeration Technician Name Role Phone YULY DOWNING Primary Care [...] PT INITIAL EVAL 2024 02:30P M Kenyon Florek, PT Not available Not available Not available PT FOLLOW-U P 2024 02:00P M Kenyon Florek, PT Not available Not available Not available PT FOLLOW-U P 2024 02:00P M Kenyon Florek, PT Not available Not available Not available PT FOLLOW-U P 2024 01:30P M Zoltan Scafuri, INTERN BRAND Not available Not available Not available PT FOLLOW-U P 2024 01:30P M Zoltan Scafuri, INTERN BRAND Not available Not available Not available PT FOLLOW-U P 2024 02:00P M Kenyon Florek, PT Not available Not available Not available PT FOLLOW-U P 2024 02:00P M Kenyon Florek, PT Not available Not available Not available PT FOLLOW-U P 2024 01:30P M Zoltan Scafuri, INTERN BRAND Not available Not available Not available PT FOLLOW-U P 2024 01:30P M Zoltan Scafuri, INTERN BRAND Not available Not available Not available PT FOLLOW-U P 2024 02:00P M Kenyon Florek, PT Not available Not available Not available PT FOLLOW-U P 2024 01:30P M Zoltan Scafuri, INTERN BRAND Not available Not available Not available PT FOLLOW-U P 2024 01:30P M Zoltan Scafuri, INTERN BRAND Not available Not available Not available PT FOLLOW-U P 2024 01:30P M Kenyon Florek, PT Not available Not available Not available PT FOLLOW-U P 2024 01:30P M Kenyon Florek, PT Not available Not available Not available PT FOLLOW-U P 2024 01:30P M Zoltan Scafuri, INTERN BRAND Not available Not available Not available PT FOLLOW-U P 2024 01:30P M Zoltan Scafuri, INTERN BRAND Not available Not available Not available PT FOLLOW-U P 2024 01:30P M Kenyon Florek, PT Not available Not available Not available PT FOLLOW-U P 2024 01:30P M Kenyon Florek, PT Not available Not available Not available PT FOLLOW-U P 2024 01:30P M Zoltan Scafuri, INTERN BRAND Not available Not available Not available PT FOLLOW-U P 2024 01:30P M Zoltan Scafuri, INTERN BRAND Not available Not available Not available PT FOLLOW-U P 2024 01:30P M Kenyon Florek, PT Not available Not available Not available PT FOLLOW-U P 2024 01:30P M Kenyon Florek, PT Not available Not available Not available Lab None recorded . Referral None recorded . Procedures None recorded . Surgeries None recorded . Imaging None recorded . Medication Orders None recorded . Patient TargetsNo targets recorded. Patient InstructionsNo instructions recorded. Reason for Referral None Reported. Results Created Date Observation Date Name Description Value Unit Range Abnormal Flag Note LastModifiedBy Organization Detail LastModifiedTime 02/24/20 24 02/24/2024 sary GRANGER, 2 or more view [email or web address] ?Encry pted=s Argenis YD8dLq bEUv6g %2BXZw aYqtaq 0bqfl% 2Fg9IQ a4ajBk vP9nXo QUaueC m3YtLR FvZlgJ JJ8mAn HZtai3 4y7700 AC0Kqa 3iBUaK iKiQtr MwF INTERFACE [facility] [address], [place], [address], 02/24/2024 13:50:16 02/24/20 24 02/24/2024 XRsary, 2 or more view [email or web address] ?Encry pted=s hAaTro YD8dLq bEUv6g %2BXZw aYqtaq 0bqfl% 2Fg9IQ a4ajBk vP9nXo QUaueC m3YtLR FvZlgJ JJ8mAn HZtai3 5x5274 AC0Kqa 3iBUaK iKiQtr MwF INTERFACE [facility] [address], [place], [address], 02/24/2024 13:50:18 03/13/20 24 03/11/2024 MRI, sary barber, w/o contr ast [facility] Access ion Number : [id number] Patily t Name: Lizeth Santos Record Number : [id number] Date of : 1945 Date of Exam: 2023 Referr ing Physic karissa: [facility]) [address] [place] [address] Exam: MR Should er (C-) CPT 39837 - Left Room Descri ption: [facility] 3.0T Clinic al Histor y: Pain in [...] ly Signed By: Tawanna Underwood ra, MD [email or web address] [facility] ([facility]) [address], [place], [address], 03/14/2024 07:28:45 Result Notes None recorded. Problems Name Problem SNOMED Code Status Onset Date Resolution Date Notes Provider Name and Address Organization Details Recorded Time Idiopathic osteoarthri tis 669045250 Active 2014 Problem Code: M17.11; Problem Code Type: ICD-10; Status: 'A'; Not Available [facility] 10:57:33 Problem Notes None recorded. Procedures Surgical History Date Name Laterality Status Provider Name and Address Organization Details Recorded Time 12/21/2023 Prabha US completed Kenyon Villavicencio PA-C [address], [place], [address], [facility] - [facility] 12/21/2023 13:55:20 Imaging Results None recorded. Procedure Notes None recorded. Medical Equipment None Reported. Allergies Allergen ID Allergen Name Allergen Category Reaction Reaction Severity Criticality Documentation Date Start Date Code Code System Note Provider Name and Address Organization Details Recorded Time 79024 Medicinal product containin g penicilli n and acting as antibacte rial agent (product) medicatio n Not available Not available Not available 07/19/20232011 90332 05 SNOMED Not Available [facility] 11:53:32 Medications Name Sig Start Date Stop [...] Updated DateTime 03/24/2024 170.18 cm 28.2 kg/m2 31271.63 g LUIS ANTONIO ZAMORA [place] [facility] 03/24/2024 08:07:13 Social History None recorded. Functional Status None recorded. Mental Status None recorded. Family History Nothing Reported. Medical History No medical history recorded. Past Encounters Encounter ID Performer Location Encounter Start Date Encounter Closed Date Diagnosis/Indication Diagnosis SNOMED-CT Code Diagnosis ICD10 Code [id number] [facility] [address] [place] [address] 02/24/2024 13:20:46 03/15/2024 11:20:00 Pain of left shoulder joint 8718710300 9767986 M25.512 Strain of rotator cuff of shoulder 769309844 S46.012A [id number] [facility] 2nd floor [address] [place] [address] 03/24/2024 08:03:10 04/24/2024 11:46:25 Traumatic left rotator cuff tear 4031255257 2001699 S46.012D Health Concerns Section Related Observation LastModified by Organization Detai ls LastModified Time None Recorded Concern Status LastModified by Organization Details LastModified Time None Recorded Payers Encounter Date Sequence Insurance Name Policy Number Policy Castorean Covered Member ID Castorena Member ID Guarantor Name 03/24/2024 1 [employer] (MEDICARE REPLACEMENT PPO) [id number] Lizeth Santos [id number] Lizeth Santos Notes Date Note Type Note Provider Name and Address Organization Details Recorded Time 03/24/2024 text/html I am seeing the patient [...] crepitus. Elbow, wrist and hand move well. Boss Miner strength intact. No instability. MRI imaging of the left shoulder recently obtained and independently reviewed today at [facility]. MRI is notable for a full-thickness retracted [...] proceed with surgery. Miguel Nina PA-C [address] [facility] [address], [place], [address], [facility] 03/24/2024 08:32:39
--- OUTSIDE RECORDS SUMMARY | 2024-05-15 07:17 | XMS_ITS | Continuity of Care Document ---
Author Organization [facility] 2nd floor Address [address] [place] [address] Care Team Providers Care Teacher Advisor Name Role Phone CHANG URIHAVALERY Primary Care Provider [phone] Assessment Encounter Date Assessment Date Assessment LastModified by Organization Details LastModified Time 05/04/2024 05/04/2024 HISTORY AND PHYSICAL Patient date of :1945 Admitting diagnosis:left rotator cuff tear Planned procedure:left orthoscopic rotator cuff repair Surgeon: Roberto Cerna M.D. HPI:78-year-old gentleman, refrractory left shoulder pain taken to the operating room for rotator cuff repair. Past medical history:atrial fibrillation, reflux Review of systems: Negative Medications:omep razole, metoprolol, Xaralto Allergies: penicillin Past surgical history:bilatera l knee, appendectomy Social history: Alcohol use: Social [...] FOLLOW-U P 2024 01:30P M Zoltan Scafuri, WASTEWATER PLANT OPERATOR Not available Not available Not available PT FOLLOW-U P 2024 01:30P M Zoltan Scafuri, WASTEWATER PLANT OPERATOR Not available Not available Not available PT FOLLOW-U P 2024 02:00P M Kenyon Calderon, PT Not available Not available Not available PT FOLLOW-U P 2024 02:00P M Kenyon Calderon, PT Not available Not available Not available PT FOLLOW-U P 2024 01:30P M Zoltan Scafuri, WASTEWATER PLANT OPERATOR Not available Not available Not available PT FOLLOW-U P 2024 01:30P M Zoltan Scafuri, WASTEWATER PLANT OPERATOR Not available Not available Not available PT FOLLOW-U P 2024 02:00P M Kenyon Calderon, PT Not available Not available Not available PT FOLLOW-U P 2024 01:30P M Zoltan Scafuri, WASTEWATER PLANT OPERATOR Not available Not available Not available PT FOLLOW-U P 2024 01:30P M Zoltan Scafuri, WASTEWATER PLANT OPERATOR Not available Not available Not available PT FOLLOW-U P 2024 01:30P M Kenyonuma Tapiaek, PT Not available Not available Not available PT FOLLOW-U P 2024 01:30P M Kenyon Florek, PT Not available Not available Not available PT FOLLOW-U P 2024 01:30P M Zoltan Scafuri, WASTEWATER PLANT OPERATOR Not available Not available Not available PT FOLLOW-U P 2024 01:30P M Zoltan Scafuri, WASTEWATER PLANT OPERATOR Not available Not available Not available PT FOLLOW-U P 2024 01:30P M Kenyon Florek, PT Not available Not available Not available PT FOLLOW-U P 2024 01:30P M Kenyon Florek, PT Not available Not available Not available PT FOLLOW-U P 2024 01:30P M Zoltan Scafuri, WASTEWATER PLANT OPERATOR Not available Not available Not available PT FOLLOW-U P 2024 01:30P M Zoltan Scafuri, WASTEWATER PLANT OPERATOR Not available Not available Not available PT [...] instructions recorded. Reason for Referral None Reported. Problems Name Problem SNOMED Code Status Onset Date Resolution Date Notes Provider Name and Address Organization Details Recorded Time Idiopathic osteoarthri tis 861113789 Active 2014 Problem Code: M17.11; Problem Code Type: ICD-10; Status: 'A'; Not Available [facility] 10:57:33 Problem Notes None recorded. Procedures Surgical History Date Name Laterality Status Provider Name and Address Organization Details Recorded Time 12/21/2023 Prabha completed Kenyon Villavicencio PA-C [address], [place], [address], [facility] [place] 12/21/2023 13:55:20 Imaging Results None recorded. Procedure Notes None recorded. Medical Equipment None Reported. Allergies Allergen ID Allergen Name Allergen Category Reaction Reaction Severity Criticality Documentation Date Start Date Code Code System Note Provider Name and Address Organization Details Recorded Time 16171 Medicinal product containin g penicilli n and acting as antibacte rial agent (product) medicatio n Not available Not available Not available 07/19/20232011 21512 05 SNOMED Not Available [facility] 11:53:32 Medications Name Sig Start Date Stop [...] Updated DateTime 05/04/2024 170.18 cm 28.2 kg/m2 73621.63 g ROSIO PHELPS [place] - [place] [facility] 05/04/2024 11:11:13 Social History None recorded. Functional Status None recorded. Mental Status None recorded. Family History Nothing Reported. Medical History No medical history recorded. Past Encounters Encounter ID Performer Location Encounter Start Date Encounter Closed Date Diagnosis/Indication Diagnosis SNOMED-CT Code Diagnosis ICD10 Code [id number] MD [facility] [address] [place] [address] 05/04/2024 10:00:57 05/04/2024 12:04:49 Nontraumatic complete rupture of rotator cuff of left shoulder 2750022072 458017 M75.122 Health Concerns Section Related Observation LastModified by Organization Detai ls LastModified Time None Recorded Concern Status LastModified by Organization Details LastModified Time None Recorded Payers Encounter Date Sequence Insurance Name Policy Number Policy Castorena Covered Member ID Castorena Member ID Guarantor Name 05/04/2024 1 [employer] (MEDICARE REPLACEMENT PPO) [id number] Lizeth Santos [id number] Lizeth Santos
[2024-05-15 09:59] LABS: MANUAL DIFF FLAG NO
[2024-05-15 10:04] LABS: Basophils Percent Auto 0.6 % (0-2); Eosinophils Absolute Auto 0.3 X10*3/uL (0.0-0.4); Eosinophils Percent Auto 3.7 % (0-4); Hematocrit 44.4 % (42.0-52.0); Hemoglobin 15.3 g/dl (14.0-18.0); Imm Gran Abs Auto 0.04 X10*3/uL (0.00-0.03); Imm Gran Pct Auto 0.6 % (0.0-0.4); Lymphocytes Absolute Auto 1.5 X10*3/uL (1.2-4.9); Lymphocytes Percent Auto 20.7 % (20-40); Mean Corpuscular HGB Conc 34.5 g/dl (31.0-36.0); Mean Corpuscular Hemoglobin 33.6 pg (27.0-33.0); Mean Corpuscular Volume 97.6 fL (80.0-98.0); Mean Platelet Volume 10.5 fL (9.4-12.4); Monocytes Absolute Auto 0.9 X10*3/uL (0.1-1.2); Monocytes Percent Auto 12.1 % (2-11); Neutrophils Absolute Auto 4.5 x10*3/uL (2.0-8.3); Neutrophils Percent Auto 62.3 % (45-73); Platelet Count 206 X10*3/uL (160-400); Red Blood Count 4.55 X10*6/uL (4.60-5.80); Red Cell Distribution Width 12.5 % (11.0-16.0); White Blood Count 7.3 X10*3/uL (4.8-10.8)
[2024-05-15 10:26] LABS: Alanine Aminotransferase 16 U/L (0-40); Albumin Level 3.9 g/dL (3.5-5.0); Alkaline Phosphatase 73 U/L (39-117); Anion Gap 10 (12-20); Aspartate Amino Transferase 24 U/L (5-37); Bilirubin Total 0.5 mg/dL (0.0-1.0); Blood Urea Nitrogen 20 mg/dL (9-16); Calcium 8.6 mg/dL (8.4-10.2); Carbon Dioxide 25 mmol/L (22-29); Chloride 110 mmol/L (96-108); Estimated Glomerular Filt Rate > 60; Glucose Random 91 mg/dL (60-115); Potassium 4.1 mmol/L (3.3-5.1); Sodium 141 mmol/L (135-145); Total Protein 6.7 g/dL (6.5-8.0)
== END 2024-05-15 07:16 | disposition home or self-care (01) ==
LOC: HO.HMGCLDS 07:15
PROVIDERS: PCP Internal Medicine; Visit Provider Internal Medicine
DX: I48.0 Paroxysmal atrial fibrillation (principal)
CPT/HCPCS: 36415; 80053; 85025

== ENCOUNTER 2024-06-29 13:59 | Outpatient (AMB) | payer MEDICARE, SELFPAY ==
--- OUTSIDE RECORDS SUMMARY | 2024-06-29 14:01 | XMS_ITS | Clinical Summary ---
Author Organization [address] Address [address] [place] [phone] Phone Care Team Providers Care Printing Specialist Name Role Phone Unavailable Primary Care Provider Unavailabl e Allergies Active Allergy Reactions Criticality Noted Date Comments Penicillins 10/08/2018 Medications aspirin 325 MG EC tablet Take 325 mg by mouth daily Active metoprolol succinate (TOPROL-XL) 25 MG 24 hr tablet Take 25 mg by mouth daily Take with or immediately following a meal. Active tamsulosin (FLOMAX) 0.4 mg Cap 24 hr capsule Take 0.4 mg by mouth daily Active Active Problems Problem Noted Date Diagnosed Date Postural dizziness with presyncope 10/08/2018 Social History Tobacco Use Types Packs/Day Years Used Date Smoking Tobacco: Never Assessed Sex and Gender Information Value Date Recorded Sex Assigned at Not on file Legal Sex Male 4:49 PM EDT Gender Identity Not on file Sexual Orientation Not on file Last Filed Vital Signs Vital Sign Reading Time Taken Comments Blood Pressure 116/79 10/09/2018 12:46 PM EDT Pulse 49 10/09/2018 12:46 PM EDT Temperature 36.7 ??C (98 ??F) 10/09/2018 8:11 AM EDT Respiratory Rate 18 10/09/2018 8:11 AM EDT Oxygen Saturation 95% 10/09/2018 12: 46 PM EDT Inhaled Oxygen Concentration - - Weight 80.7 kg (177 lb 14.6 oz) 10/08/2018 7:45 PM EDT Height 170.2 cm (5' 7 ) 10/08/2018 7:45 PM EDT Body Mass Index 27.86 10/08/2018 7:45 PM EDT Plan of Treatment Health Maintenance Due Date Last Done Comments HIV screening 10/05/1960 Hepatitis C screening 10/05/1965 Tetanus adult (Td q 10,TDAP once) 1967 Shingles vaccine (Shingrix) (1 of 2 - Shingrix (RZV) 2 Dose Standard Series) 10/05/1997 Pneumo Vaccine 65+ (1 of 1 - PCV) 10/05/2012 Diabetes screening 10/09/2021 10/09/2018, 10/09/2018, 10/08/2018 RSV Discussion (1 - 1-dose 7 5+ series) 10/05/2022 Lipid disorder screening 10/09/2023 10/08/2018 Influenza vaccine 12/16/2023 Covid-19 vaccine series (2023- season) 2024 Meningococcal Vaccine Aged Out No eddie stephan eligible based on patient's age to complete this topic Procedures Procedure Name Priority Date/Time Associated Diagnosis Comments BASIC METABOLIC PANEL Routine 10/09/2018 5:45 AM EDT LIPID PANEL Urgent 10/08/2018 10:14 PM EDT from Last 3 Months or Most Recently Relevant to Health Maintenance Results * (ABNORMAL) Basic metabolic panel (10/09/2018 5:45 AM EDT) Sodium 137 136 - 144 mmol/L 10/09/2018 6:55 AM EDT [facility] Potassium 4.4 3.3 - 5.1 mmol/L 10/09/2018 6:55 AM EDT [facility] Chloride 106 98 - 107 mmol/L 10/09/2018 6:55 AM EDT [facility] CO2 21 20 - 30 mmol/L 10/09/2018 6:55 AM EDT [facility] Anion Gap 10 7 - 17 10/09/2018 6:55 AM EDT [facility] Glucose 91 70 - 100 mg/dL 10/09/2018 6:55 AM EDT [facility] BUN 16 8 - 18 mg/dL 10/09/2018 6:55 AM EDT [facility] Creatinine 1.05 0.40 - 1.30 mg/dL 10/09/2018 6:55 AM EDT [facility] Calcium 8.6(L) 8.8 - 10.2 mg/dL 10/09/2018 6:55 AM EDT [facility] BUN/Creatinine Ratio 15.2 8.0 - 23.0 10/09/2018 6:55 AM EDT [facility] eGFR (Afr Amer) >60 >60 mL/min/1.7 3m2 10/09/2018 6:55 AM EDT [facility] Comment: Values under 60mL/min/1.73m2 may indicate CKD if noted for ?? more than 3 months. eGFR is only valid if creatinine is at steady state. eGFR (NON -Iliana n) >60 >60 mL/min/1.7 3m2 10/09/2018 6:55 AM EDT [facility] Comment: Values under 60mL/min/1.73m2 may indicate CKD if noted for ?? more than 3 months. eGFR is only valid if creatinine is at steady state. Blood Venipuncture / Unknown 10/09/2018 5:45 AM EDT 10/09/2018 6:13 AM EDT Roberto Blackwood MD LAB BLOOD ORDERABLES Fin al Result Performing Organization Address [facility] Co de Phone Number [facility] [address] [place] [address], [facility] [phone] * (ABNORMAL) Lipid panel (10/08/2018 10:14 PM EDT) Cholesterol 220(H) See Comment mg/dL 10/08/2018 11:02 PM EDT [facility] Comment: Total Cholesterol (mg/dL) ?Adults (>18 years) ? Children (<18 years) Desirable ?<200 ? <170 Borderline-High ?200-239 ?170-199 High ? >=240 ?>=200 ? HDL 47 >=40 mg/dL 10/08/2018 11:02 PM EDT [facility] Triglycerides 93 See Comment mg/dL 10/08/2018 11:02 PM EDT [facility] Comment: Triglycerides (mg/dL) ?Adults (>18 years) ? Children (<18 years) Desirable ?<150 ? Not Established Borderline-High ?150-199 ?Not Established High ? 200-499 ?Not Established ?? Chol/HDL Ratio 4.7 0.0 - 5.0 10/08/2018 11:02 PM EDT [facility] LDL Calculated 154(H) See Comment mg/dL 10/08/2018 11:02 PM EDT [facility] Comment: LDL Cholesterol (mg/dL) ?Adults (>18 years) ? Children (<18 years) Desirable ?<100 ? <110 Above Desirable ?100-129 ?Not Established Borderline-High ?130-159 ?110- 129 High ? 160-189 ?>=130 Very High? >=190 ? Not Established Blood Venipuncture / Unknown 10/08/2018 10:14 PM EDT 10/08/2018 10:29 PM EDT us Roberto Blackwood MD LAB BLOOD ORDERABLES Fin al Result [facility] [address] [place] [id number], [facility] [phone] from Last 3 Months or Most Recently Relevant to Health Maintenance Insurance MEDICARE [facility] MEDICARE [facility] MEDICARE [facility] Advance Directives * Full ACLS (Latest Code Status on File) Date Activated Date Inactivated Comments 10/08/2018 8:47 PM 10/09/2018 10:49 PM
--- NOTE | 2024-06-29 14:04 | MHC.PC.OV ---
Vital Signs 06/29/24 14:07 06/29/24 14:15 Height 5 ft 7 in Weight 182 lb BMI 28.5 BP 108/70 120/70 Blood Pressure Location Lt brachial Lt brachial Position Sitting Sitting Pulse 62 Pulse Source Pulse Oximeter Temp 97.1 F Temp Source Temporal Artery Scan Pulse Oximetry (%) 96 Oxygen Delivery Method Room Air Intake Visit Reasons: annual exam Allergies Penicillins [PENICILLINS] Allergy (Unknown, Verified 05/18/23 10:52) HIVES/RASH Medication List - Last Reconciled 06/29/24 by Sabino Hwang MD ascorbic acid (vitamin C) 1 g PO Q6H cholecalciferol (vitamin D3) 25 mcg PO DAILY metoprolol succinate ER 25 mg PO DAILY multivitamin 1 tab PO DAILY omega [id number]-fish oil 360-1,200 mg (Fish Oil) 1 cap PO DAILY omeprazole 20 mg PO DAILY rivaroxaban (Xarelto) 20 mg PO DAILY rosuvastatin 10 mg PO DAILY tamsulosin (Flomax) 0.4 mg PO DAILY Tobacco use date assessed: 05/18/23 Dental Screening Dental Screen Date: 05/18/23 HPI annual exam HPI Details L shoulder surgery 04/2024 Dr. Cerna The patient is a 78-year-old male presenting with multiple chronic conditions for an annual physical examination and evaluation. He has a significant history of Paroxysmal Supraventricular Tachycardia (PSVT), Benign Prostatic Hyperplasia (BPH), Gastroesophageal Reflux Disease (GERD), Hypercholesterolemia, and Atrial Fibrillation. Additionally, the patient has Obstructive Sleep Apnea, previously diagnosed with an Apnea Hypopnea Index (AHI) of 16.6 in October 2018, and was advised to sleep in a lateral position. His history of ascending aortic dilatation was later normalized. Peripheral Vascular Disease is present without previous abnormal peripheral arterial disease screenings as of April 2024. He underwent shoulder surgery on May 16, 2023, performed by Dr. Cerna, with a subsequent good recovery. He was found allergic to penicillin. Previous evaluations include an EGD and colonoscopy performed in January 2020 following tubular adenoma identification, with a recommendation for a follow-up in 2024. His blood work in April 2024 showed normal counts, electrolytes, renal function, and no anemia. Cholesterol levels checked in 2021 indicated an LDL of 79. The patient is currently managing BPH with tamsulosin. He continues treatment with metoprolol for atrial fibrillation and anticoagulation with rivaroxaban. His lipid levels are managed with rosuvastatin. He was advised to continue [id number] vitamins. - Blood work completed in April 2024 was unremarkable. - Advised for repeat colonoscopy in 2024 due to a history of tubular adenoma. - Current sleep apnea management includes positional sleep therapy, avoiding CPAP. - Vaccinations: Flu shot received, pneumonia vaccine up to date, tetanus and shingles vaccines current. - Discussed discontinuation of fish oil supplement when finished. - Blood pressure monitoring recommended to avoid hypotension due to antihypertensive treatment. - Exercises include recreational activities such as bowling. - Recent weight loss attributed to dietary changes. - No alcohol or tobacco use. - Former use of a scopolamine patch for dizziness during travel now discontinued. - Regular consumption of water and Gatorade. - Engages in social activities at the [employer] for meals. - Enjoys leisurely interests, such as cars and maintenance activities. - Cardiovascular: Denies palpitations, chest pain. - Respiratory: Denies shortness of breath, nocturnal dyspnea. - Gastrointestinal: Denies dysphagia, constipation. - Genitourinary: Denies nocturia, dysuria. - Neurologic: Denies recent dizziness, syncope. - Musculoskeletal: Denies ongoing pain post shoulder surgery. - Sense Organs: Denies difficulty swallowing, maintains functional hearing. - Labs: April 2024 - normal blood count, electrolytes, and renal function. - Test: Peripheral arterial disease test normal in April 2024. - Screening: AHI of 16.6 from sleep study October 2018. [facility] Medical History Ascending aorta dilatation Atrial fibrillation BPH (benign prostatic hyperplasia) GERD (gastroesophageal reflux disease) History of renal calculi Hypercholesterolemia Obstructive sleep apnea Osteoarthritis, knee PSVT (paroxysmal supraventricular tachycardia) Pulmonary nodules Surgical History History of appendectomy History of arthroscopy of right knee History of extraction of renal calculus Family History Father Medical history unknown Mother Breast cancer Maternal Grandfather Colon cancer Social History Housing: House Alcohol intake: never Patient Tobacco Use Status: Former Tobacco user Years Smoked: quit 2002 e-Cigarette/Vaping Use: Never Used service: No Current occupational status: retired Cognitive needs: No Hearing needs: No Vision needs: Yes Questionnaire PHQ-9 Over the last 2 weeks, how often have you been bothered by any of the following problems? 1. Little interest or pleasure in doing things: not at all 2. Feeling down, depressed, or hopeless: not at all 3. Trouble falling or staying asleep, or sleeping too much: not at all 4. Feeling tired or having little energy: not at all 5. Poor appetite or overeating: not at all 6. Feeling bad about yourself - or that you are a failure or have let yourself or your family down: not at all 7. Trouble concentrating on things, such as reading the newspaper or watching television: not at all 8. Moving or speaking so slowly that other people could have noticed. Or the opposite - being so fidgety or restless that you have been moving around a lot more than usual: not at all 9. Thoughts that you would be better off or of hurting yourself in some way: not at all Total score: 0 Depression Screening Interpretation: Negative Depression Screening Done: Yes 13798 - PHQ-9 Billing: Yes Source: Developed by Drs. Luis Eduardo Danielson, Bronwyn Marcano, John Angel and colleagues, with an educational rowena from [employer]. Thrive Questionnaire Date Thrive assessed: 06/29/24 I am a: Patient What is your living situation today?: I have a steady place to live Within the past 12 months, did the food you bought not last and you didn't have the money to get more?: Never true Within the past 12 months, did you worry whether your food would run out before you got money to buy more?: Never true Do you have trouble paying for medicines?: I choose not to answer this question Do you have trouble getting transportation to medical appointments?: No Do you have trouble paying your heating and electricity bill?: No Do you have trouble taking care of your child, family member or friend?: No Do you have trouble with day-to-day activities such as bathing, preparing meals, shopping, managing finances, etc.?: No Are you currently unemployed and looking for a job?: No Are you interested in more education?: Yes Please select the resources that you would like help with: None Currently or been in a relationship where the following occur: No concerns reported THRIVE Score: 0 AUDIT C Alcohol Use Questionnaire (AUDIT-C) 1. How often do you have a drink containing alcohol?: Never 3. How often do you have six or more drinks on one occasion?: Never Total Score: 0 MAYNOR-7 AMB Questionnaire MAYNOR-7 Date MAYNOR - 7 assessed: 06/29/24 Feeling nervous, anxious, or on edge: 0 = Not at all Not being able to stop or control worryin = Not at all Worrying too much about different things: 0 = Not at all Trouble relaxin = Not at all Being so restless that it is hard to sit still: 0 = Not at all Becoming easily annoyed or irritable: 0 = Not at all Feeling afraid as if something awful might happen: 0 = Not at all Total MAYNOR-7 score (0-4 normal; 5-9 mild; 10-14 moderate; 15-21 severe): 0 Source: Developed by Drs. Luis Eduardo Danielson, Bronwyn Marcano, John Angel and colleagues, with an educational rowena from [employer]. MAYNOR-7 Assessment Billing MAYNOR-7 Assessment Tool: MAYNOR-7 Assessment 63587 Review of Systems Const Denies poor appetite and Denies weakness Eyes Denies no additional complaints ENT Reports Normal hearing present, Denies dizziness, Denies nasal congestion, Denies tinnitus and Denies sore throat Card Denies chest pain, Denies syncope, Denies rapid heart rate and Denies dyspnea Resp Denies cough and Denies dyspnea GI Denies change in stool character, Reports constipation, Denies diarrhea, Denies nausea and Denies vomiting Denies dysuria and Denies urinary frequency Neuro Reports Normal hearing present, Denies confusion, Denies dizziness, Denies syncope and Denies weakness Psych Denies confusion Physical exam (Primary Care) Tobacco/Smoking Status: Tobacco use Status Tobacco use date assessed 05/18/23 06/29/24 14:04 Patient Tobacco Use Status Former Tobacco user 06/29/24 14:04 e-Cigarette/Vaping Use Never Used 06/29/24 14:04 PHQ-9: PHQ-9 Score PHQ-9: Total score 0 06/29/24 14:04 Depression Screening Interpretation: Negative Thrive Assessment: Date of Thrive Assessment Date Thrive assessed 06/29/24 06/29/24 14:04 Currently or been in a relationship where the following occur: No concerns reported Const General: No confusion Orientation/consciousness: No confusion HENMT Head: Yes normocephalic Ears: external ears normal and TM's normal bilaterally Face and sinus: Yes normal facial exam Mouth: moist mucous membranes Throat: Yes tonsils normal Eyes Conjunctivae: conjunctivae normal Pupils: Equal, round and reactive pupils present and Pupil accommodation reflex normal Direct Ophthalmoscopy: normal light reflex Neck Neck: No lymphadenopathy Thyroid: Thyroid normal Chest Chest palpation & inspection: normal inspection of the chest Resp Effort & Inspection: normal respiratory effort and no audible wheezes Auscultation: clear to auscultation bilaterally, no crackles, no wheezes and lung sounds not diminished Cardio Rate: regular rate Rhythm: regular rhythm Peripheral pulses: radial pulses present and dorsalis pedis present GI Palpation (GI): no masses Auscultation: normal bowel sounds and normoactive bowel sounds Rectal Exam - Male: Yes deferred Skin General skin exam: no rashes or lesions noted Rashes: no rashes Neuro General: No confusion Cranial nerves: Yes Equal, round and reactive pupils present and Yes Normal hearing present Cognition (Neuro): normal cognition Gait exam (Neuro): Normal gait present Motor exam (neuro): 5/5 motor strength present throughout Deep tendon reflexes (DTR's): Right brachioradialis reflex intensity grade: 2+, Left brachioradialis reflex intensity grade: 2+, Right patellar reflex intensity grade: 2+ and Left patellar reflex intensity grade: 2+ Extrem General: No edema Coding Level of Care Code Est Pt Prev Care >65y(98001) Diagnoses Annual physical exam Z00.00 Gastroesophageal reflux disease without esophagitis K21.9 Esophagitis presence: without esophagitis Paroxysmal atrial fibrillation I48.0 Atrial fibrillation type: paroxysmal Benign prostatic hyperplasia with urinary frequency N40.1; R35.0 Lower urinary tract symptom presence: symptoms present Lower urinary tract symptom detail: urinary frequency Hypercholesterolemia E78.00 Obstructive sleep apnea G47.33 Colon cancer screening Z12.11 Additional Codes MAYNOR-7 Assessment Billing - MAYNOR-7 Assessment Tool: MAYNOR-7 Assessment 25172 ([id number]) PHQ-9 - 50027 - PHQ-9 Billing: Yes ([id number]) Assessment & Plan Assessment & Plan (1) Annual physical exam: Code(s): Z00.00 - Encounter for general adult medical examination without abnormal findings Category: Medical Plan: Patient is advised to eat healthy, keep well hydrated, keep active and have adequate sleep. (2) GERD (gastroesophageal reflux disease): Code(s): K21.9 - Gastro-esophageal reflux disease without esophagitis Category: Medical Qualifiers: Esophagitis presence: without esophagitis Qualified Code(s): K21.9 - Gastro-esophageal reflux disease without esophagitis Plan: Avoid the foods that causes that usually spicy foods, tomato products, juices, coffee, soda and foods that your sensitive to. After eating do not lie down, allow 3-4 hours before in lie down. And keep the head of bed above 30 degrees to avoid the acid from going up. (3) Atrial fibrillation: Comment: Dr. Steve Code(s): I48.91 - Unspecified atrial fibrillation Category: Medical Qualifiers: Atrial fibrillation type: paroxysmal Qualified Code(s): I48.0 - Paroxysmal atrial fibrillation Plan: Continuing on metoprolol and anticoagulation (4) BPH (benign prostatic hyperplasia): Code(s): N40.0 - Benign prostatic hyperplasia without lower urinary tract symptoms Category: Medical Qualifiers: Lower urinary tract symptom presence: symptoms present Lower urinary tract symptom detail: urinary frequency Qualified Code(s): N40.1 - Benign prostatic hyperplasia with lower urinary tract symptoms; R35.0 - Frequency of micturition Plan: Continue with tamsulosin 0.4 mg once a day (5) Hypercholesterolemia: Code(s): E78.00 - Pure hypercholesterolemia, unspecified Category: Medical Plan: Avoid fried foods, chicken skin, eggs, butter margarine, pastries and meat. Be it pork or beef they have a lot of cholesterol on rosuvastatin 10 mg once a (6) Obstructive sleep apnea: Comment: October 2018 supine Code(s): G47.33 - Obstructive sleep apnea (adult) (pediatric) Category: Medical Plan: Discussed the results needing for the patient to sleep in the lateral position. (7) Colon cancer screening: Comment: 2019 Dr. Summers Code(s): Z12.11 - Encounter for screening for malignant neoplasm of colon Category: Medical Plan 1. - Repeat lipid panel and basic metabolic panel five months from April 2024.: I discussed the management of atrial fibrillation and the proposed atrial ablation procedure. We reviewed the patient's current medication regimen and confirmed its continuation. The patient is aware of the future need for a colonoscopy in 2024 due to prior adenoma findings. Emphasized the importance of maintaining a lateral sleep position to manage obstructive sleep apnea. Discussed the discontinuation of fish oil supplementation and recommended increased dietary fish intake. The patient did not report any medication side effects. Discussed seasonal flu, RSV, and COVID-19 precautions, advising avoiding contagious areas. - Continue all current medications as prescribed. - Maintain sleep on your side to manage sleep apnea. - Repeat fasting lab work for cholesterol screening in approximately five months. - Schedule follow-up colonoscopy for January 2025. - Avoid exposure to flu, RSV, and COVID-19. - Consult if experiencing any new symptoms or health changes. Orders: Orders Complete Blood Count Auto Diff 5 Months E78.00 - Pure hypercholesterolemia, unspecified Comprehensive Met. Panel 5 Months E78.00 - Pure hypercholesterolemia, unspecified Free T4 (Free Thyroxine) 5 Months E78.00 - Pure hypercholesterolemia, unspecified Lipid Panel 5 Months E78.00 - Pure hypercholesterolemia, unspecified Thyroid Stimulating Hormone 5 Months E78.00 - Pure hypercholesterolemia, unspecified Vitamin B12 and Folate 5 Months E78.00 - Pure hypercholesterolemia, unspecified Prostate Specific Antigen Scr 5 Months E78.00 - Pure hypercholesterolemia, unspecified Magnesium 5 Months E78.00 - Pure hypercholesterolemia, unspecified
[2024-06-29 14:07] VITALS: BP 108/70; PULSE 62; TEMP 36.2; O2SAT 96; BMI 28.5
[2024-06-29 14:15] VITALS: BP 120/70
== END 2024-06-29 14:34 | disposition home or self-care (01) ==
PROVIDERS: PCP Internal Medicine; Visit Provider Internal Medicine
DX: Z00.00 Encounter for general adult medical examination without abnormal findings (principal); K21.9 Gastro-esophageal reflux disease without esophagitis; I48.0 Paroxysmal atrial fibrillation; N40.1 Benign prostatic hyperplasia with lower urinary tract symptoms; R35.0 Frequency of micturition; E78.00 Pure hypercholesterolemia, unspecified; G47.33 Obstructive sleep apnea (adult) (pediatric); Z12.11 Encounter for screening for malignant neoplasm of colon

== ENCOUNTER → 2024-06-29 13:59 | Outpatient (BNVA) | payer MEDICARE, SELFPAY | PROVIDERS: PCP Internal Medicine; Visit Provider Internal Medicine | DX: Z00.00 Encounter for general adult medical examination without abnormal findings (principal); K21.9 Gastro-esophageal reflux disease without esophagitis; I48.0 Paroxysmal atrial fibrillation; N40.1 Benign prostatic hyperplasia with lower urinary tract symptoms; R35.0 Frequency of micturition; E78.00 Pure hypercholesterolemia, unspecified; G47.33 Obstructive sleep apnea (adult) (pediatric) | CPT/HCPCS: 96127; 99397 ==

== ENCOUNTER 2024-09-18 12:12 | Outpatient (AMB) | payer MEDICARE, SELFPAY ==
--- NOTE | 2024-09-18 12:37 | MHC.OFFVIS ---
Vital Signs 09/18/24 12:43 Pulse 57 Pulse Source Pulse Oximeter Pulse Oximetry (%) 96 Oxygen Delivery Method Room Air Intake Visit Reasons: EP RT zarate, v sharp pain, swelling, warm Intake Note: Pt came into the [place] [facility] C/o right zarate slightly swollen and sharp pain with movement. 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 No redness/abraison/laceration noted. [employer] and JAMES (Sunil) aware. Allergies Penicillins [PENICILLINS] Allergy (Unknown, Verified 05/18/23 10:52) HIVES/RASH [facility] Medical History Ascending aorta dilatation Atrial fibrillation BPH (benign prostatic hyperplasia) GERD (gastroesophageal reflux disease) History of renal calculi Hypercholesterolemia Obstructive sleep apnea Osteoarthritis, knee PSVT (paroxysmal supraventricular tachycardia) Pulmonary nodules Surgical History History of appendectomy History of arthroscopy of right knee History of extraction of renal calculus Family History Father Medical history unknown Mother Breast cancer Maternal Grandfather Colon cancer Social History Housing: House Alcohol intake: never Patient Tobacco Use Status: Former Tobacco user Years Smoked: quit 2002 e-Cigarette/Vaping Use: Never Used service: No Current occupational status: retired Cognitive needs: No Hearing needs: No Vision needs: Yes Coding
[2024-09-18 12:43] VITALS: PULSE 57; O2SAT 96
[2024-09-18 13:52] VITALS: BP 118/76; PULSE 56; O2SAT 98
--- NOTE | 2024-09-18 13:53 | MHC.OFFWIV ---
Intake Vital Signs 09/18/24 12:43 09/18/24 13:52 Weight 180 lb BP 118/76 Blood Pressure Location Lt brachial Position Sitting Pulse 57 56 Pulse Source Pulse Oximeter Pulse Oximeter Pulse Oximetry (%) 96 98 Oxygen Delivery Method Room Air Room Air Intake Visit Reasons: EP RT zarate, v sharp pain, swelling, warm Patient Tobacco Use Status: Former Tobacco user Allergies Penicillins [PENICILLINS] Allergy (Unknown, Verified 09/18/24 13:53) HIVES/RASH Do you need a note to return to daycare/school/sports/work: No HPI HPI Comments History of Present Illness Details 78 y/o Male patient who presents to the walk in clinic with c/o sharp pain right anterior Foot since Wednesday. Pt denies injury or trauma to the leg. Reports pain with Dorsiflexion/Plantar flexion. Pt worried he might have DVT, asking for U/S. [facility], [facility] Medical History (Updated 09/18/24 @ 14:33 by Mackenzie Sheriff NP) Pain in right lower leg Pulmonary nodules History of renal calculi Atrial fibrillation Osteoarthritis, knee Obstructive sleep apnea Ascending aorta dilatation Hypercholesterolemia GERD (gastroesophageal reflux disease) PSVT (paroxysmal supraventricular tachycardia) BPH (benign prostatic hyperplasia) Surgical History (Updated 06/29/24 @ 14:35 by Sabino Hwang MD) History of extraction of renal calculus History of arthroscopy of right knee History of appendectomy Family History Father Medical history unknown Mother Breast cancer Maternal Grandfather Colon cancer Social History Housing: House Alcohol intake: never Patient Tobacco Use Status: Former Tobacco user Years Smoked: quit 2002 e-Cigarette/Vaping Use: Never Used service: No Current occupational status: retired Cognitive needs: No Hearing needs: No Vision needs: Yes Review of Systems Const All systems reviewed & are unremarkable except as noted in HPI and below Physical Exam Vital Signs: Last Vital Signs Pulse 56 09/18/24 13:52 BP 118/76 09/18/24 13:52 Pulse Ox 98 09/18/24 13:52 Oxygen Delivery Method Room Air 09/18/24 13:52 Const General: no acute distress Orientation/consciousness: patient oriented x3 Neuro General: patient oriented x3 Extrem Right lower extremity: lower leg Details: normal to inspection, tenderness Location: of the midshaft fibula and of the distal fibula and no edema; no ecchymosis, no crepitus and no deformity Ankle/foot/toe images: 1. Non TTP, Negative Timothy's test. Pain with Dorsiflexion/Plantar flexion. Assessment & Plan Assessment & Plan (1) Pain in right lower leg: Code(s): M79.661 - Pain in right lower leg Plan: Ordered LE U/S to r/o DVT. Orders: Orders US venous duplex LE RT Today M79.661 - Pain in right lower leg Coding Level of Care Code Est Pt Level 4 (84778) Diagnoses Pain in right lower leg M79.661 Time Spent (min) 20
== END 2024-09-18 15:09 | disposition home or self-care (01) ==
PROVIDERS: PCP Internal Medicine; Visit Provider Nurse Practitioner Family
DX: M79.661 Pain in right lower leg (principal)

== ENCOUNTER → 2024-09-18 12:12 | Outpatient (BNVA) | payer MEDICARE, SELFPAY | PROVIDERS: PCP Internal Medicine; Visit Provider Nurse Practitioner Family | DX: Z13.89 Encounter for screening for other disorder (principal) ==

== ENCOUNTER 2024-09-18 14:54 | Outpatient (REF) | payer MEDICARE, SELFPAY ==
--- NOTE | ~2024-09-18 | US_ITS ---
EXAMINATION: US LOWER EXTREMITY VEINS LIMITED FOLLOW UP RIGHT HISTORY: M79.661 - Pain in right lower leg COMPARISON: There are no prior studies for comparison. TECHNIQUE: Duplex and color Doppler sonographic examination of the deep venous system of the right lower extremity was performed. FINDINGS: The common femoral, superficial femoral, and popliteal veins are patent demonstrating normal compressibility, spontaneous flow, and augmentation. There is a normal color and spectral Doppler waveform appearance of the visualized deep venous system above the knee. The posterior tibial and peroneal veins are patent. US/US venous duplex LE RT IMPRESSION: No evidence of acute DVT in the right lower extremity. Electronically signed by: Luis Eduardo Tadeo MD 09/18/2024 03:22 PM EDT
--- OUTSIDE RECORDS SUMMARY | 2024-09-18 16:30 | XMS_ITS | Clinical Summary ---
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 Name Role Phone Unavailable Primary Care Provider [...] Tetanus adult (Td q 10,TDAP once) 1967 Pneumococcal Vaccine (50+ years) (1 of 1 - PCV) 10/05/1997 Shingles vaccine (Shingrix) (1 of 2 - Shingrix (RZV) 2 Dose Standard Series) 10/05/1997 Diabetes screening 10/09/2021 10/09/2018, 10/09/2018, 10/08/2018 RSV Immunization (1 - 1-dose 75+ series) 10/05/2022 Lipid disorder screening 10/09/2023 10/08/2018 Covid-19 vaccine series ( - 2023- season) 2024 Influenza vaccine 01/15/2025 Colon cancer screening, Colonoscopy Discontinued Meningococcal Vaccine Aged Out No eddie stephan [...] - 144 mmol/L 10/09/2018 6:55 AM EDT [facility] Potassium 4.4 3.3 - 5.1 mmol/L 10/09/2018 6:55 AM EDT [facility] Chloride 106 98 - 107 mmol/L 10/09/2018 6:55 AM EDT [facility] CO2 21 20 - 30 mmol/L 10/09/2018 6:55 AM EDT [facility] Anion Gap 10 7 - 17 10/09/2018 6:55 AM EDT [facility] Glucose 91 70 - 100 mg/dL 10/09/2018 6:55 AM EDT [facility] BUN 16 8 - 18 mg/dL 10/09/2018 6:55 AM EDT [facility] Creatinine 1.05 0.40 - 1.30 mg/dL 10/09/2018 6:55 AM EDT [facility] Calcium 8.6(L) 8.8 - 10.2 mg/dL 10/09/2018 6:55 AM EDT [facility] BUN/Creatinine Ratio 15.2 8.0 - 23.0 10/09/2018 6:55 AM EDT [facility] eGFR (Afr Amer) >60 >60 mL/min/1.7 3m2 10/09/2018 6:55 AM EDT [facility] Comment: Values under 60mL/min/1.73m2 may indicate CKD if noted for ?? more than 3 months. eGFR is only valid if creatinine is at steady state. eGFR (NON -Iliana n) >60 >60 mL/min/1.7 3m2 10/09/2018 6:55 AM EDT [facility] Comment: Values under 60mL/min/1.73m2 may indicate CKD if noted for ?? more than 3 months. eGFR is only valid if creatinine is at steady state. Blood Venipuncture / Unknown 10/09/2018 5:45 AM EDT 10/09/2018 6:13 AM EDT us Roberto Blackwood MD LAB BLOOD ORDERABLES Fin al Result Performing Organization Address City/State/[facility] Co de Phone Number [facility] [address] [place] [address], [facility] [phone] * (ABNORMAL) Lipid panel (10/08/2018 10:14 PM EDT) Cholesterol 220(H) See Comment mg/dL 10/08/2018 11:02 PM EDT [facility] Comment: Total Cholesterol (mg/dL) ?Adults (>18 years) ? Children (<18 years) Desirable ?<200 ? <170 Borderline-High ?200-239 ?170-199 High ? >=240 ?>=200 ? HDL 47 >=40 mg/dL 10/08/2018 11:02 PM EDT [facility] Triglycerides 93 See Comment mg/dL 10/08/2018 11:02 PM EDT [facility] Comment: Triglycerides (mg/dL) ?Adults (>18 years) ? Children (<18 years) Desirable ?<150 ? Not Established Borderline-High ?150-199 ?Not Established High ? 200-499 ?Not Established ?? Chol/HDL Ratio 4.7 0.0 - 5.0 10/08/2018 11:02 PM EDT [facility] LDL Calculated 154(H) See Comment mg/dL 10/08/2018 11:02 PM EDT [facility] Comment: LDL Cholesterol (mg/dL) ?Adults (>18 years) ? Children (<18 years) Desirable ?<100 ? <110 Above Desirable ?100-129 ?Not Established Borderline-High ?130-159 ?110- 129 High ? 160-189 ?>=130 Very High? >=190 ? Not Established Blood Venipuncture / Unknown 10/08/2018 10:14 PM EDT 10/08/2018 10:29 PM EDT us Roberto Blackwood MD LAB BLOOD ORDERABLES Fin al Result [facility] [address] [place] [id number], [facility] [phone] from Last 3 Months or Most Recently Relevant to Health Maintenance Insurance MEDICARE [facility] MEDICARE [facility] MEDICARE [facility] Advance Directives * Full ACLS (Latest Code Status on File) Date Activated Date Inactivated Comments 10/08/2018 8:47 PM 10/09/2018 10:49 PM
== END 2024-09-18 14:55 | disposition home or self-care (01) ==
LOC: HO.HMGCX 14:54
PROVIDERS: PCP Internal Medicine; Visit Provider Nurse Practitioner Family
DX: M79.661 Pain in right lower leg (principal)
CPT/HCPCS: 93971; 99212

== ENCOUNTER → 2024-09-18 14:57 | Outpatient (BNV) | payer MEDICARE, SELFPAY | PROVIDERS: PCP Internal Medicine; Visit Provider Radiology Diagnostic Radiology | DX: M79.661 Pain in right lower leg (principal) | CPT/HCPCS: 93971 ==

== ENCOUNTER 2024-11-28 07:57 | Outpatient (AMB) | payer MEDICARE, SELFPAY ==
--- OUTSIDE RECORDS SUMMARY | 2024-11-28 07:59 | XMS_ITS | Clinical Summary ---
Author Organization [address] Address [address] [place] [phone] Phone Care Team Providers Care Connie Scratcher Name Role Phone Unavailable Primary Care Provider [...] 49 10/09/2018 12:46 PM EDT Temperature 36.7 C (98 F) 10/09/2018 8:11 AM EDT Respiratory Rate 18 [...] - 144 mmol/L 10/09/2018 6:55 AM EDT [facility] Potassium 4.4 3.3 - 5.1 mmol/L 10/09/2018 6:55 AM EDT [facility] Chloride 106 98 - 107 mmol/L 10/09/2018 6:55 AM EDT [facility] CO2 21 20 - 30 mmol/L 10/09/2018 6:55 AM EDT [facility] Anion Gap 10 7 - 17 10/09/2018 6:55 AM EDT [facility] Glucose 91 70 - 100 mg/dL 10/09/2018 6:55 AM EDT [facility] BUN 16 8 - 18 mg/dL 10/09/2018 6:55 AM EDT [facility] Creatinine 1.05 0.40 - 1.30 mg/dL 10/09/2018 6:55 AM EDT [facility] Calcium 8.6(L) 8.8 - 10.2 mg/dL 10/09/2018 6:55 AM EDT [facility] BUN/Creatinine Ratio 15.2 8.0 - 23.0 10/09/2018 6:55 AM EDT [facility] eGFR (Afr Amer) >60 >60 mL/min/1.7 3m2 10/09/2018 6:55 AM EDT [facility] Comment: Values under 60mL/min/1.73m2 may indicate CKD if noted for more than 3 months. eGFR is only valid if creatinine is at steady state. eGFR (NON -Iliana n) >60 >60 mL/min/1.7 3m2 10/09/2018 6:55 AM EDT [facility] Comment: Values under 60mL/min/1.73m2 may indicate CKD if noted for more than 3 months. eGFR is only valid if creatinine is at steady state. Blood Venipuncture / Unknown 10/09/2018 5:45 AM EDT 10/09/2018 6:13 AM EDT us Roberto Blackwood MD LAB BLOOD ORDERABLES Fin al Result [facility] [address] [place] [address], [facility] [phone] * (ABNORMAL) Lipid panel (10/08/2018 10:14 PM EDT) Cholesterol 220(H) See Comment mg/dL 10/08/2018 11:02 PM EDT [facility] Comment: Total Cholesterol (mg/dL) Adults (>18 years) Children (<18 years) Desirable <200 <170 Borderline-High 200-239 170-199 High >=240 >=200 HDL 47 >=40 mg/dL 10/08/2018 11:02 PM EDT [facility] Triglycerides 93 See Comment mg/dL 10/08/2018 11:02 PM EDT [facility] Comment: Triglycerides (mg/dL) Adults (>18 years) Children (<18 years) Desirable <150 Not Established Borderline-High 150-199 Not Established High 200-499 Not Established Chol/HDL Ratio 4.7 0.0 - 5.0 10/08/2018 11:02 PM T [facility] LDL Calculated 154(H) See Comment mg/dL 10/08/2018 11:02 PM EDT [facility] Comment: LDL Cholesterol (mg/dL) Adults (>18 years) Children (<18 years) Desirable <100 <110 Above Desirable 100-129 Not Established Borderline-High 130-159 110-129 High 160-189 >=130 Very High >=190 Not Established Blood Venipuncture / Unknown 10/08/2018 10:14 PM EDT 10/08/2018 10:29 PM EDT us Roberto Blackwood MD LAB BLOOD ORDERABLES Fin al Result [facility] [address] [place] [address], [facility] [phone] from Last 3 Months or Most Recently Relevant to Health Maintenance Insurance MEDICARE [facility] MEDICARE [facility] ([place]) [address] [place], [place] [id number] MEDICARE [facility] Advance Directives * Full ACLS (Latest Code Status on File) Date Activated Date Inactivated Comments 10/08/2018 8:47 PM 10/09/2018 10:49 PM
--- OUTSIDE RECORDS SUMMARY | 2024-11-28 07:59 | XMS_ITS | Patient Health Record ---
Author Organization [facility] Address [address] [place] [phone] Care Team Providers Care Nuclear Weapons Custodian Name Role Phone Sabino Hwang MD Primary Care Provider Yong Alfred Jr Unavailable [phone] Allergies Allergen (clinical drug ingredient) Drug/Non Drug Allergy documented on EMR Reaction Allergy Type Onset Date Status Penicillin Unknown Drug Allergy Active Reason For Referral No Information Medications Medication SIG (Take, Route, Frequency, Duration) Notes Start Date End Date Status MiraLax (colon prep) 8.3 ounce ((238) grams mixed with Gatorade or Crystal Light orally begin at 5:00 p.m. the day before the procedure for 1 day 01/17/2020 Active Xarelto 20 MG TAKE 1 TABLET BY SANTY TH EVERY DAY WITH FOOD Oral for 90 Active Vitamin C 500 MG as directed Orally Active Multivitamin - 1 tablet Orally Once a day for 30 day(s) Active Flomax 0.4 MG 1 capsule 30 minutes after the same meal each day Orally Once a day Active Aspirin 81 MG 1 tablet Orally Once a day Active Metoprolol Succinate ER 25 MG 1 tablet Orally Once a day for 30 day(s) Active Omeprazole 20 MG 1 tablet Orally Once a day for 30 days 01/11/2019 Active Immunizations Vaccine Route Administration Date Status Comme nts Influenza Unknown 03/23/2018 Administered Influenza Unknown 02/15/2019 Administered Problems Problem Type SNOMED Code ICD Code Onset Dates Problem Status W/U Status Risk Notes Problem 625429828 Colon cancer screening (Z12.11) Active confirmed Problem 611034942 Gastroesophageal reflux disease without esophagitis (K21.9) Active confirmed Problem 126911568 GERD without esophagitis (K21.9) Active confirmed Plan Of Treatment Future Test Test Name Order Date COLONOSCOPY 12/05/2014 UPPER GI ENDOSCOPY 01/17/2020 COLONOSCOPY 01/17/2020 Insurance Providers Payer Name Payer Address Payer Phone Subscriber Number Group Number Insured Name Patient Relationship to Insured Coverage Start Date Coverage End Date MEDICARE OF [place] [address] [place] [id number] AMIE DELGADILLO Self - patient is the insured [facility] [address] [place], [place] [id number] [phone] [id number] AMIE DELGADILLO Self - patient is the insured Medical (General) History Medical History History ICD Code colonoscopy 03/08/15, history of tubular adenomas, followup 5 years. paroxysmal atrial fibrillation BPH elevated cholesterol obstructive sleep apnea Surgical History Surgery Date(Month/Year) knee surgery right side appendectomy bladder stone, status post laser ablatio n
[2024-11-28 08:00] VITALS: BP 106/56; PULSE 50; TEMP 36.7; O2SAT 97; BMI 27.6
--- NOTE | 2024-11-28 08:00 | MHC.OFFWIV ---
Intake Vital Signs 11/28/24 08:00 Height 5 ft 7 in Weight 176 lb BMI 27.6 BP 106/56 L Blood Pressure Location Lt brachial Position Sitting Pulse 50 Pulse Source Pulse Oximeter Temp 98.0 F Temp Source Oral Pulse Oximetry (%) 97 Oxygen Delivery Method Room Air Intake Visit Reasons: EP Hernia? Intake Note: here for bulge in right inguinal fold with pain. noticed for about a week now Patient Tobacco Use Status: Former Tobacco user Allergies Penicillins (PENICILLINS) Allergy (Unknown, Verified 11/28/24 08:02) HIVES/RASH Do you need a note to return to daycare/school/sports/work: No HPI HPI Comments History of Present Illness Details Patient is a 79yo M with hx of afib, ELVIE, HLD, GERD and BPH who presents with ? hernia Pt is a Dr. Hwang PCP patient He states he noticed a bulge to his R groin x 1 week He said aches when it pops out No sharp pains and unable to give pain scale for discomfort Unsure how that happens/what makes it worse but states it improves/flattens when he massages the area No hx of hernia before Called PCP office and told to go to No interfere with bowel movements and denies urinary or bowel complaints No currently abdominal pain PFSH Medical History (Updated 11/28/24 @ 08:21 by Shabana Pride PA-C) Pain in right lower leg Pulmonary nodules History of renal calculi Atrial fibrillation Osteoarthritis, knee Obstructive sleep apnea Ascending aorta dilatation Hypercholesterolemia GERD (gastroesophageal reflux disease) PSVT (paroxysmal supraventricular tachycardia) BPH (benign prostatic hyperplasia) Surgical History (Updated 06/29/24 @ 14:35 by Sabino Hwang MD) History of extraction of renal calculus History of arthroscopy of right knee History of appendectomy Family History Father Medical history unknown Mother Breast cancer Maternal Grandfather Colon cancer Social History Housing: House Alcohol intake: never Patient Tobacco Use Status: Former Tobacco user Years Smoked: quit 2002 e-Cigarette/Vaping Use: Never Used service: No Current occupational status: retired Cognitive needs: No Hearing needs: No Vision needs: Yes Review of Systems Const Denies chills and Denies fever(s) Card Denies chest pain and Denies dyspnea Resp Denies dyspnea GI Denies abdominal pain, Denies change in bowel habits, Denies constipation, Denies diarrhea, Denies vomiting and Reports other (ache R inguinal/groin area) Denies difficulty urinating Musc Denies myalgias Skin/Breast Denies erythema and Denies rash Physical Exam Vital Signs: Last Vital Signs Temp 98.0 F 11/28/24 08:00 Pulse 40 L 11/28/24 08:00 BP 106/56 L 11/28/24 08:00 Pulse Ox 97 11/28/24 08:00 Oxygen Delivery Method Room Air 11/28/24 08:00 BMI result Body Mass Index 27.6 General: Non-toxic, NAD. Speaking full sentences. Skin: Warm dry throughout. No abdominal/groin/inguinal erythema, ecchymosis warmth or rashes appreciated Eye: EOMI Respiratory: No tachypnea Abdominal: Non-tender throughout. + palpable small reducible inguinal hernia. Minimal discomfort with palpation. None noted to L side. No inguinal lymphadenopathy present. No abdominal distention or pusatile mass. MSK: Full ROM extremities. Neurology: Alert. No aphasia or facial droop. Gait without abnormality Psych: Good mood and affect Assessment & Plan Assessment & Plan (1) Inguinal hernia, right: Code(s): K40.90 - Unilateral inguinal hernia, without obstruction or gangrene, not specified as recurrent Plan: Patient seen and evaluated. Non-toxic appearing No concern strangulation or incarceration Discussed warning s/s that pt needs to monitor for and be seen immediately He is aware and gave verbal understanding and had no additional questions or concerns at time of discharge Sent note to Dr. Hwang (PCP) for possible general surgery referral and he will f/u with PCP for further management All questions answered Coding Level of Care Code Est Pt Level 3 (23316) Diagnoses Inguinal hernia, right K40.90
== END 2024-11-28 09:16 | disposition home or self-care (01) ==
PROVIDERS: PCP Internal Medicine; Visit Provider Physician Assistant
DX: K40.90 Unilateral inguinal hernia, without obstruction or gangrene, not specified as recurrent (principal)

== ENCOUNTER → 2024-11-28 07:57 | Outpatient (BNVA) | payer MEDICARE, SELFPAY | PROVIDERS: PCP Internal Medicine; Visit Provider Physician Assistant | DX: K40.90 Unilateral inguinal hernia, without obstruction or gangrene, not specified as recurrent (principal) | CPT/HCPCS: 99212 ==

== ENCOUNTER 2025-04-11 07:39 | Outpatient (AMB) | payer MEDICARE, SELFPAY ==
--- OUTSIDE RECORDS SUMMARY | 2025-03-02 04:20 | XMS_ITS ---
Author Organization [facility] Address [address] [place] [phone] Care Team Providers Care Youth Liaison Officer Name Role Phone Sabino Hwang MD Primary Care Provider Yong Alfred Jr Unavailable REASON FOR VISIT Patient presents today for colonoscopy recall Encounters Encounter Location Date Provider Diagnosis [facility] [address] [place] [phone] 03/02/2025 Yong Summers Jr Plan Of Treatment No Information Progress Notes * AMIE DELGADILLO LDOB:1945 (79 yo M)Acc No.[id number]:03/02/2025 Progress Notes Patient: AMIE SMITH Provider: Tameka Summers MD :1945 A ge:79 Y S ex:Male Date:03/02/2025 Address:[address] [place], [place] [id number] Pcp:Sabino Hwang MD Subjective: * Chief Complaints: * P atient presents today for colonoscopy recall Billing Information: * Procedure Codes: * The named appointment provid er may or may not be the originator of this progress note, and it is not deemed complete until electronically signed by the appointment provider. Sign off status: Pending * Provider: Tameka Summers MD Date: Generated for Conneri suzanne/Faivelisesg/eTransmitting on: 06/11/2024 07:42 AM EST
[2025-04-11 07:41] VITALS: BP 118/58; PULSE 45; O2SAT 98; BMI 28.7
--- NOTE | 2025-04-11 07:41 | AM.OFFWIN_ITS ---
Intake Vital Signs 04/11/25 07:41 Height 5 ft 7 in Weight 183 lb BMI 28.7 BP 118/58 L Blood Pressure Location Lt brachial Position Sitting Pulse 45 L Pulse Source Pulse Oximeter Pulse Oximetry (%) 98 Oxygen Delivery Method Room Air Intake Visit Reasons: EP skin pain on lt side of head, above ear Intake Note: Patient presents c/o left sided skin pain/soreness above left ear x1 week. Patient Tobacco Use Status: Former Tobacco user Allergies Penicillins (PENICILLINS) Allergy (Unknown, Verified 04/11/25 07:44) HIVES/RASH HPI HPI Comments History of Present Illness Details History of Present Illness - The patient is a 79 year old male pres enting with sore skin on the ear, which began last week. - The pain is localized to the skin and is triggered by facial muscle movement, such as swallowing. - The patient denies any burning sensati on, rash, fevers, or chills. - The patient reports the pain was worse for the first 2-3 days, describing it as a brief, sharp pain, but it has not been as severe for the past 4-5 days. - The patient has no personal history of shingles. - Associated symptoms are denied, includ ing internal ear pain, facial drooping, jaw pain, tooth pain, or headaches. - The patient has been taking Motrin, wh ich has helped reduce the inflammation. - The patient recently recovered from a cold. - He denies slurring speech, congestion, sinus pain or pressure, ST, or cough. Physical Exam General: Cooperative, healthy appearing, comfortable, no acute distress and well developed Orientation: Patient oriented x3 Limitations: No limitations Head: Normal to inspection. No bulging vessels noted on the temples. No facial droop. No masses or lesions on the scalp. No hair loss. Ears: Hearing grossly normal bilaterally. No tragus tenderness noted. No mastoid tenderness noted. No erythema or edema noted in the canal. No cerumen. TM is normal bilaterally. Nose: Normal external nose present Face and sinus: Normal facial exam. No sinus tenderness noted. Eyes: Appearance normal, both eyes and all related structures Neck: Normal visual inspection and Yes full ROM. No lymphadenopathy noted. Respiratory: Normal respiratory effort and able to speak in complete sentences. Clear to auscultation bilaterally Cardiovascular: Regular rate and rhythm. Normal S1 and S2. No m/r/g noted. Skin: No rashes or lesions noted. Neuro: Patient oriented x3. CN II-XII intact. Patient was informed and verbally consented to the use of an ambient scribe for clinic note documentation during this visit. [facility] Medical History (Updated 11/28/24 @ 08:21 by Shabana Pride PA-C) Pain in right lower leg Pulmonary nodules History of renal calculi Atrial fibrillation Osteoarthritis, knee Obstructive sleep apnea Ascending aorta dilatation Hypercholesterolemia GERD (gastroesophageal reflux disease) PSVT (paroxysmal supraventricular tachycardia) BPH (benign prostatic hyperplasia) Surgical History (Updated 06/29/24 @ 14:35 by Sabino Hwang MD) History of extraction of renal calculus History of arthroscopy of right knee History of appendectomy Family History Father Medical history unknown Mother Breast cancer Maternal Grandfather Colon cancer Social History Housing: House Alcohol intake: never Patient Tobacco Use Status: Former Tobacco user Years Smoked: quit 2002 e-Cigarette/Vaping Use: Never Used service: No Current occupational status: retired Cognitive needs: No Hearing needs: No Vision needs: Yes Review of Systems Const All systems reviewed & are unremarkable except as noted in HPI and below Physical Exam Vital Signs: Last Vital Signs Pulse 45 L 04/11/25 07:41 BP 118/58 L 04/11/25 07:41 Pulse Ox 98 04/11/25 07:41 Oxygen Delivery Method Room Air 04/11/25 07:41 BMI result Body Mass Index 28.7 Assessment & Plan Assessment & Plan (1) Pain of skin: Code(s): R20.8 - Other disturbances of skin sensation Plan Most likely neuropathy vs allodynia vs migraine vs dermatitis Don't suspect herpes as he has no rash plan - The pain is suspected to be inflammatory or neuropathic in nature - A 5-day course of prednisone 40 mg daily (two pills daily) was prescribed to reduce inflammation. - The patient was advised to continue taking Motrin or Tylenol as needed for pain control. - The patient was instructed to monitor for any new rash, fever, or changes in facial movement. - The patient was advised to follow up on Wednesday if symptoms do not improve or worsen Medications: New prednisone 40 mg (2 x 20 mg) PO DAILY 10 tabs 0RF 5 days Coding Level of Care Code Est Pt Level 3 (35870) Diagnoses Pain of skin R20.8
--- OUTSIDE RECORDS SUMMARY | 2025-04-11 07:42 | XMS_ITS | Patient Health Record ---
Author Organization [facility] Address [address] [place] [phone] Care Team Providers Care Plate Molder Name Role Phone Sabino Hwang MD Primary Care Provider Yong Alfred Jr Unavailable [phone] Allergies Allergen (clinical drug ingredient) Drug/Non Drug Allergy documented on EMR Reaction Allergy Type Onset Date Status Penicillin Unknown Drug Allergy Active Reason For Referral No Information Medications Medication SIG (Take, Route, Frequency, Duration) Notes Start Date End Date Status MiraLax (colon prep) 8.3 ounce ((238) grams mixed with Gatorade or Crystal Light orally begin at 5:00 p.m. the day before the procedure; Duration: 1 day 01/17/2020 Active Xarelto 20 MG Tablet TAKE 1 TABLET BY [facility] EVERY DAY WITH FOOD Oral; Duration: 90 Active Vitamin C 500 MG Capsule as directed Orally Active Multivitamin - Tablet 1 tablet Orally On ce a day; Duration: 30 day(s) Active Flomax 0.4 MG Capsule 1 capsule 30 minut es after the same meal each day Orally Once a day Active Aspirin 81 MG Tablet Chewable 1 tablet Orally Once a day Active Metoprolol Succinate ER 25 MG Tablet Extended Release 24 Hour 1 tablet Orally Once a day; Duration: 30 day(s) Active Omeprazole 20 MG Tablet Delayed Release 1 tablet Orally Once a day; Duration: 30 days 01/11/2019 Active Immunizations Vaccine Route Administration Date Status Comme nts Influenza Unknown 03/23/2018 Administered Influenza Unknown 02/15/2019 Administered Social History Social History Additional Details Category Social Info Options Details Miscellaneous: Marital status: 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 [address] [place] [address] 03/02/2025 Yong Summers Jr Plan Of Treatment Future Test Test Name Order Date COLONOSCOPY 12/05/2014 UPPER GI ENDOSCOPY 01/17/2020 COLONOSCOPY 01/17/2020 Insurance Providers Payer Name Payer Address Payer Phone Subscriber Number Group Number Insured Name Patient Relationship to Insured Coverage Start Date Coverage End Date [facility] [address] [place], [place] [id number] AMIE DELGADILLO Self - patient is the insured MEDICARE OF [place] [address] [place] [address] [id number] AMIE DELGADILLO Self - patient is the insured Medical (General) History Medical History History ICD Code colonoscopy 03/08/15, history of tubular adenomas, followup 5 years. paroxysmal atrial fibrillation BPH elevated cholesterol obstructive sleep apnea Surgical History Surgery Date(Month/Year) knee surgery right side appendectomy bladder stone, status post laser ablatio n
--- OUTSIDE RECORDS SUMMARY | 2025-04-11 07:42 | XMS_ITS | Clinical Summary ---
Author Organization [address] Address [address] [place] [phone] Phone Care Team Providers Care Brass Wind Instrument Maker Name Role Phone Unavailable Primary Care Provider [...] Lipid disorder screening 10/09/2023 10/08/2018 Influenza vaccine 12/15/2024 Covid-19 vaccine series ( - 2024- season) 2025 Colon cancer screening, Colonoscopy Discontinued Meningococcal B Vaccine Aged Out No l onger eligible based on patient's age to complete this topic Meningococcal Vaccine Aged Out No eddie stephan [...] - 144 mmol/L 10/09/2018 6:55 AM EDT [facility] Potassium 4.4 3.3 - 5.1 mmol/L 10/09/2018 6:55 AM EDT [facility] Chloride 106 98 - 107 mmol/L 10/09/2018 6:55 AM EDT [facility] CO2 21 20 - 30 mmol/L 10/09/2018 6:55 AM EDT [facility] Anion Gap 10 7 - 17 10/09/2018 6:55 AM EDT [facility] Glucose 91 70 - 100 mg/dL 10/09/2018 6:55 AM EDT [facility] BUN 16 8 - 18 mg/dL 10/09/2018 6:55 AM EDT [facility] Creatinine 1.05 0.40 - 1.30 mg/dL 10/09/2018 6:55 AM EDT [facility] Calcium 8.6(L) 8.8 - 10.2 mg/dL 10/09/2018 6:55 AM EDT [facility] BUN/Creatinine Ratio 15.2 8.0 - 23.0 10/09/2018 6:55 AM EDT [facility] eGFR (Afr Amer) >60 >60 mL/min/1.7 3m2 10/09/2018 6:55 AM EDT [facility] Comment: Values under 60mL/min/1.73m2 may indicate CKD if noted for more than 3 months. eGFR is only valid if creatinine is at steady state. eGFR (NON -Iliana n) >60 >60 mL/min/1.7 3m2 10/09/2018 6:55 AM EDT [facility] Comment: Values under 60mL/min/1.73m2 may indicate CKD if noted for more than 3 months. eGFR is only valid if creatinine is at steady state. Blood Venipuncture / Unknown 10/09/2018 5:45 AM EDT 10/09/2018 6:13 AM EDT us Roberto Blackwood MD LAB BLOOD ORDERABLES Fin al Result [facility] [address] [place] [address] * (ABNORMAL) Lipid panel (10/08/2018 10:14 PM EDT) Cholesterol 220(H) See Comment mg/dL 10/08/2018 11:02 PM EDT [facility] Comment: Total Cholesterol (mg/dL) Adults (>18 years) Children (<18 years) Desirable <200 <170 Borderline-High 200-239 170-199 High >=240 >=200 HDL 47 >=40 mg/dL 10/08/2018 11:02 PM EDT [facility] Triglycerides 93 See Comment mg/dL 10/08/2018 11:02 PM T [facility] Comment: Triglycerides (mg/dL) Adults (>18 years) Children (<18 years) Desirable <150 Not Established Borderline-High 150-199 Not Established High 200-499 Not Established Chol/HDL Ratio 4.7 0.0 - 5.0 10/08/2018 11:02 PM T [facility] LDL Calculated 154(H) See Comment mg/dL 10/08/2018 11:02 PM T [facility] Comment: LDL Cholesterol (mg/dL) Adults (>18 years) Children (<18 years) Desirable <100 <110 Above Desirable 100-129 Not Established Borderline-High 130-159 110-129 High 160-189 >=130 Very High >=190 Not Established Blood Venipuncture / Unknown 10/08/2018 10:14 PM EDT 10/08/2018 10:29 PM EDT us Roberto Blackwood MD LAB BLOOD ORDERABLES Fin al Result [facility] [address] [place] [id number], [facility] [phone] from Last 3 Months or Most Recently Relevant to Health Maintenance Insurance MEDICARE [facility] MEDICARE [facility] MEDICARE [facility] Advance Directives * Full ACLS (Latest Code Status on File) Date Activated Date Inactivated Comments 10/08/2018 8:47 PM 10/09/2018 10:49 PM
== END 2025-04-11 08:14 | disposition home or self-care (01) ==
PROVIDERS: PCP Internal Medicine; Visit Provider Physician Assistant Medical
DX: R20.8 Other disturbances of skin sensation (principal)

== ENCOUNTER → 2025-04-11 07:39 | Outpatient (BNVA) | payer MEDICARE, SELFPAY | PROVIDERS: PCP Internal Medicine; Visit Provider Physician Assistant Medical | DX: G47.33 Obstructive sleep apnea (adult) (pediatric) (principal); R20.8 Other disturbances of skin sensation | CPT/HCPCS: 99212 ==

== ENCOUNTER 2025-04-19 08:04 | Outpatient (AMB) | payer MEDICARE, SELFPAY ==
--- OUTSIDE RECORDS SUMMARY | 2025-03-02 04:20 | XMS_ITS ---
Author Organization [facility] Address [address] [place] [phone] Care Team Providers Care Director Private Name Role Phone Sabino Hwang MD Primary Care Provider Yong Alfred Jr Unavailable [phone] REASON FOR VISIT Patient presents today for colonoscopy recall Encounters Encounter Location Date Provider Diagnosis [facility] [address] [facility] [facility] [address] [place] [phone] 03/02/2025 Yong Summers Jr Plan Of Treatment No Information Progress Notes * AMIE DELGADILLO LDOB:1945 (79 yo M)Acc No.[id number]:03/02/2025 Progress Notes Patient: AMIE SMITH Provider: Tameka Summers MD :1945 A ge:79 Y S ex:Male Date:03/02/2025 Address:[address] [place], [place] [phone] Pcp:Sabino Hwang MD Subjective: * Chief Complaints: * P atient presents today for colonoscopy recall Billing Information: * Procedure Codes: * The named appointment provid er may or may not be the originator of this progress note, and it is not deemed complete until electronically signed by the appointment provider. Sign off status: Pending * Provider: Tameka Summers MD Date: Generated for Eliot palacios/Tyler/eTransmitting on: 06/20/2024 08:12 AM EST
[2025-04-19 08:07] VITALS: BP 110/62; PULSE 73; O2SAT 98; BMI 28.7
--- NOTE | 2025-04-19 08:07 | MHC.OFFWIV ---
Intake Vital Signs 04/19/25 08:07 Height 5 ft 7 in Weight 183 lb BMI 28.7 BP 110/62 Blood Pressure Location Rt brachial Position Sitting Pulse 73 Pulse Source Pulse Oximeter Pulse Oximetry (%) 98 Oxygen Delivery Method Room Air Intake Visit Reasons: EP-lt side head sore Intake Note: Patient returns c/o left side of head is still sore - seen on 04/11 & prescribed prednisone which he completed & states still present. Patient Tobacco Use Status: Former Tobacco user Allergies Penicillins (PENICILLINS) Allergy (Unknown, Verified 04/19/25 08:09) HIVES/RASH HPI HPI Comments History of Present Illness Details History of Present Illness - The patient is a 79-year-old male presenting for follow-up of persistent pain over his ear. - He reports that after his last visit on 04/11 and completing the medication, his symptoms improved significantly until Wednesday, but have since returned, though they are still better than his initial presentation. - The pain is in the same location over the left ear and he experiences occasional pangs with a burning sensation. - He has not taken anything else for this pain. - He denies any associated rash, fever, headache, or changes in vision. - He confirms that he finished all the medication from the previous prescription. - He denies ear pain, sore throat, cough, visual changes, abd pain, n/v/d, facial droop, hair loss. rastafarian pain, or dental pain. Physical Exam General: Cooperative, healthy appearing, comfortable, no acute distress and well developed Orientation: Patient oriented x3 Limitations: No limitations Head: Normal to inspection. No rashes, lesions, scaling, alopecia, masses or lumps noted. Ears: Hearing grossly normal bilaterally. No TTP of the tragus or mastoid noted. No cerumen noted in the canals. TMs normal. Nose: Normal external nose present Face and sinus: Normal facial exam. No sinus tenderness noted. Eyes: Appearance normal, both eyes and all related structures. PERRLA, EOMI. Neck: Normal visual inspection and Yes full ROM. No lymphadenopathy noted. Respiratory: Normal respiratory effort and able to speak in complete sentences. Clear to auscultation bilaterally. No w/r/r noted. Cardiovascular: Regular rate and rhythm. Normal S1 and S2. No m/r/g noted. Skin: No rashes or lesions noted Neuro: Patient oriented x3. CN II-XII intact. No facial droop. Extremities: Normal to inspection Patient was informed and verbally consented to the use of an ambient scribe for clinic note documentation during this visit. [facility] Medical History (Updated 11/28/24 @ 08:21 by Shabana Pride PA-C) Pain in right lower leg Pulmonary nodules History of renal calculi Atrial fibrillation Osteoarthritis, knee Obstructive sleep apnea Ascending aorta dilatation Hypercholesterolemia GERD (gastroesophageal reflux disease) PSVT (paroxysmal supraventricular tachycardia) BPH (benign prostatic hyperplasia) Surgical History (Updated 06/29/24 @ 14:35 by Sabino Hwang MD) History of extraction of renal calculus History of arthroscopy of right knee History of appendectomy Family History Father Medical history unknown Mother Breast cancer Maternal Grandfather Colon cancer Social History Housing: House Alcohol intake: never Patient Tobacco Use Status: Former Tobacco user Years Smoked: quit 2002 e-Cigarette/Vaping Use: Never Used service: No Current occupational status: retired Cognitive needs: No Hearing needs: No Vision needs: Yes Review of Systems Const All systems reviewed & are unremarkable except as noted in HPI and below Physical Exam Vital Signs: Last Vital Signs Pulse 73 04/19/25 08:07 BP 110/62 04/19/25 08:07 Pulse Ox 98 04/19/25 08:07 Oxygen Delivery Method Room Air 04/19/25 08:07 BMI result Body Mass Index 28.7 Assessment & Plan Assessment & Plan (1) Pain of skin: Code(s): R20.8 - Other disturbances of skin sensation Plan Most likely Cephalalgia vs neuralgia vs allodynia unlikely due to shingles with no rash present plan - The patient's pain over the ear, described as a burning sensation, has improved but not fully resolved with prior treatment. - Shingles was considered, but the absence of a rash makes it unlikely; the presenting symptom is suspected to be nerve pain. - A second, longer, tapered course of prednisone will be prescribed. - will add flexeril as needed TID - can take tylenol, motrin or aleve for pain. - If symptoms do not resolve after this course of medication, the patient is advised to see his primary doctor for further evaluation. Medications: New methylprednisolone PO PER PKG DIR for 6 days 21 ea 0RF cyclobenzaprine 5 mg PO Q8H PRN 20 tabs 0RF Muscle Spasm Coding Level of Care Code Est Pt Level 3 (76395) Diagnoses Pain of skin R20.8
--- OUTSIDE RECORDS SUMMARY | 2025-04-19 08:13 | XMS_ITS | Clinical Summary ---
Author Organization [address] Address [address] [place] [phone] Phone Care Team Providers Care Lockstitch Hemmer Name Role Phone Unavailable Primary Care Provider [...] - 144 mmol/L 10/09/2018 6:55 AM EDT [facility] Potassium 4.4 3.3 - 5.1 mmol/L 10/09/2018 6:55 AM EDT [facility] Chloride 106 98 - 107 mmol/L 10/09/2018 6:55 AM EDT [facility] CO2 21 20 - 30 mmol/L 10/09/2018 6:55 AM EDT [facility] Anion Gap 10 7 - 17 10/09/2018 6:55 AM EDT [facility] Glucose 91 70 - 100 mg/dL 10/09/2018 6:55 AM EDT [facility] BUN 16 8 - 18 mg/dL 10/09/2018 6:55 AM EDT [facility] Creatinine 1.05 0.40 - 1.30 mg/dL 10/09/2018 6:55 AM EDT [facility] Calcium 8.6(L) 8.8 - 10.2 mg/dL 10/09/2018 6:55 AM EDT [facility] BUN/Creatinine Ratio 15.2 8.0 - 23.0 10/09/2018 6:55 AM EDT [facility] eGFR (Afr Amer) >60 >60 mL/min/1.7 3m2 10/09/2018 6:55 AM EDT [facility] Comment: Values under 60mL/min/1.73m2 may indicate CKD if noted for more than 3 months. eGFR is only valid if creatinine is at steady state. eGFR (NON -Iliana n) >60 >60 mL/min/1.7 3m2 10/09/2018 6:55 AM EDT [facility] Comment: Values under 60mL/min/1.73m2 may indicate CKD if noted for more than 3 months. eGFR is only valid if creatinine is at steady state. Blood Venipuncture / Unknown 10/09/2018 5:45 AM EDT 10/09/2018 6:13 AM EDT us Roberto Blackwood MD LAB BLOOD ORDERABLES Fin al Result [facility] [address] [place] [address] * (ABNORMAL) Lipid panel (10/08/2018 10:14 PM EDT) Cholesterol 220(H) See Comment mg/dL 10/08/2018 11:02 PM EDT [facility] Comment: Total Cholesterol (mg/dL) Adults (>18 years) Children (<18 years) Desirable <200 <170 Borderline-High 200-239 170-199 High >=240 >=200 HDL 47 >=40 mg/dL 10/08/2018 11:02 PM EDT [facility] Triglycerides 93 See Comment mg/dL 10/08/2018 11:02 PM T [facility] Comment: Triglycerides (mg/dL) Adults (>18 years) Children (<18 years) Desirable <150 Not Established Borderline-High 150-199 Not Established High 200-499 Not Established Chol/HDL Ratio 4.7 0.0 - 5.0 10/08/2018 11:02 PM T [facility] LDL Calculated 154(H) See Comment mg/dL 10/08/2018 11:02 PM T [facility] Comment: LDL Cholesterol (mg/dL) Adults (>18 years) Children (<18 years) Desirable <100 <110 Above Desirable 100-129 Not Established Borderline-High 130-159 110-129 High 160-189 >=130 Very High >=190 Not Established Blood Venipuncture / Unknown 10/08/2018 10:14 PM EDT 10/08/2018 10:29 PM EDT us Roberto Blackwood MD LAB BLOOD ORDERABLES Fin al Result [facility] [address] [place] [id number], [facility] [phone] from Last 3 Months or Most Recently Relevant to Health Maintenance Insurance MEDICARE [facility] MEDICARE [facility] MEDICARE [facility] Advance Directives * Full ACLS (Latest Code Status on File) Date Activated Date Inactivated Comments 10/08/2018 8:47 PM 10/09/2018 10:49 PM
--- OUTSIDE RECORDS SUMMARY | 2025-04-19 08:13 | XMS_ITS | Patient Health Record ---
Author Organization [facility] Address [address] [place] [phone] Care Team Providers Care Cushion Maker Hand Name Role Phone Sabino Hwang MD Primary Care Provider Yong Alfred Jr Unavailable Allergies Allergen (clinical drug ingredient) Drug/Non Drug [...] 20 MG Tablet TAKE 1 TABLET BY [facility] EVERY DAY WITH FOOD Oral; Duration: 90 [...] Status Risk Notes Problem Colon cancer screening (473966467) Colon cancer screening (Z12.11) Active confirmed Problem Gastroesophageal reflux disease without esophagitis (956648945) Gastroesophageal reflux disease without esophagitis (K21.9) Active confirmed Problem Gastroesophageal reflux disease (335628193) GERD without esophagitis (K21.9) Active confirmed Encounters Encounter Location Date Provider Diagnosis [facility] [address] [facility] [address] [place] [address] 03/02/2025 Yong Summers Jr Plan Of Treatment Future Test Test Name Order Date COLONOSCOPY 12/05/2014 UPPER GI ENDOSCOPY 01/17/2020 COLONOSCOPY 01/17/2020 Insurance Providers Payer Name Payer Address Payer Phone Subscriber Number Group Number Insured Name Patient Relationship to Insured Coverage Start Date Coverage End Date [facility] [address] [place], [place] [id number] AMIE DELGADILLO Self - patient is the insured MEDICARE OF [place] [address] [place] [address] [phone] [id number] AMIE DELGADILLO Self - patient is the insured Medical (General) History Medical History History ICD Code colonoscopy 03/08/15, history of tubular adenomas, followup 5 years. paroxysmal atrial fibrillation BPH elevated cholesterol obstructive sleep apnea Surgical History Surgery Date(Month/Year) knee surgery right side appendectomy bladder stone, status post laser ablatio n
== END 2025-04-19 08:34 | disposition home or self-care (01) ==
PROVIDERS: PCP Internal Medicine; Visit Provider Physician Assistant Medical
DX: R20.8 Other disturbances of skin sensation (principal)

== ENCOUNTER → 2025-04-19 08:04 | Outpatient (BNVA) | payer MEDICARE, SELFPAY | PROVIDERS: PCP Internal Medicine; Visit Provider Physician Assistant Medical | DX: R20.8 Other disturbances of skin sensation (principal) | CPT/HCPCS: 99212 ==